=== PATIENT | female | born 1950 | race Caucasian/White ===

== ENCOUNTER → 2017-05-01 | Outpatient (CLI) | payer SELFPAY ==
[2017-05-01 10:26] LABS: ABSOLUTE BASOPHILS # (AUTO) 0.1 10^3/uL (0.0-0.2); ABSOLUTE EOSINOPHILS # (AUTO) 0.8 10^3/uL (0.0-0.6); ABSOLUTE LYMPHOCYTES (AUTO) 1.9 10^3/uL (0.5-4.7); ABSOLUTE MONOCYTES (AUTO) 0.5 10^3/uL (0.1-1.4); ABSOLUTE NEUT (AUTO) 2.8 10^3/uL (1.7-8.2); BASOPHILS % (AUTO) 1.7 % (0-2); EOSINOPHILS % (AUTO) 13.4 % (0-6); HEMATOCRIT 29.2 % (36.0-47.0); HEMOGLOBIN 9.1 g/dL (12.0-15.5); HGB HCT DIFFERENCE -1.9; LYMPHOCYTES % (AUTO) 30.9 % (13-45); MEAN CORPUSCULAR HEMOGLOBIN 21.1 pg (27.0-33.4); MEAN CORPUSCULAR HGB CONC 31.3 g/dL (32.0-36.0); MEAN CORPUSCULAR VOLUME 68 fl (80-97); MONOCYTES % (AUTO) 8.1 % (3-13); RED BLOOD COUNT 4.33 10^6/uL (3.72-5.28); RED CELL DISTRIBUTION WIDTH 18.8 % (11.5-14.0); SEGMENTED NEUTROPHILS % (AUTO) 45.9 % (42-78)
[2017-05-01 10:43] LABS: ALBUMIN 4.3 g/dL (3.5-5.0); CHLORIDE 105 mmol/L (98-107); CHOLESTEROL 153.16 mg/dL (0-200); POTASSIUM 4.9 mmol/L (3.6-5.0); SODIUM 143.2 mmol/L (137-145)
[2017-05-01 10:56] LABS: DIRECT LDL 56 mg/dL (<100)
[2017-05-01 10:57] LABS: ALANINE AMINOTRANSFERASE 30 U/L (9-52); ALKALINE PHOSPHATASE 122 U/L (38-126); ANION GAP 14 (5-19); ASPARTATE AMINO TRANSFERASE 16 U/L (14-36); BILIRUBIN,DIRECT 0.3 mg/dL (0.0-0.4); BILIRUBIN,TOTAL 0.4 mg/dL (0.2-1.3); BLOOD UREA NITROGEN 15 mg/dL (7-20); CALCIUM 9.5 mg/dL (8.4-10.2); CARBON DIOXIDE 24 mmol/L (22-30); CREATININE RESULT 0.79 mg/dL (0.52-1.25); Direct HDL 97 mg/dL (>40); GLUCOSE 151 mg/dL (75-110); TOTAL PROTEIN 6.7 g/dL (6.3-8.2); TRIGLYCERIDES 45 mg/dL (<150)
== END ==
LOC: OD 09:50
PROVIDERS: ATTEND Internal Medicine
DX: E11.9 Type 2 diabetes mellitus without complications (principal); E03.9 Hypothyroidism, unspecified; E78.5 Hyperlipidemia, unspecified; R53.82 Chronic fatigue, unspecified
CPT/HCPCS: 36415; 80053; 80061; 82043; 83036; 84443; 85025

== ENCOUNTER → 2017-05-09 | Outpatient (CLI) | payer SELFPAY ==
[2017-05-09 10:53] LABS: STAIN REACTIVITY CHECK ACCEPTABLE
[2017-05-09 11:35] LABS: FERRITIN 3.95 ng/mL (11.1-264.0)
== END ==
LOC: OD 09:27
PROVIDERS: ATTEND Internal Medicine
DX: D64.9 Anemia, unspecified (principal); E11.9 Type 2 diabetes mellitus without complications; I10 Essential (primary) hypertension
CPT/HCPCS: 36415; 82728; 83540; 83550; 85045

== ENCOUNTER → 2017-06-15 | Outpatient (CLI) | payer SELFPAY ==
[2017-06-15 14:48] LABS: ABSOLUTE BASOPHILS # (AUTO) 0.1 10^3/uL (0.0-0.2); ABSOLUTE EOSINOPHILS # (AUTO) 1.1 10^3/uL (0.0-0.6); ABSOLUTE LYMPHOCYTES (AUTO) 2.3 10^3/uL (0.5-4.7); ABSOLUTE MONOCYTES (AUTO) 0.5 10^3/uL (0.1-1.4); ABSOLUTE NEUT (AUTO) 3.4 10^3/uL (1.7-8.2); BASOPHILS % (AUTO) 0.7 % (0-2); EOSINOPHILS % (AUTO) 15.4 % (0-6); HEMATOCRIT 39.8 % (36.0-47.0); HEMOGLOBIN 12.8 g/dL (12.0-15.5); LYMPHOCYTES % (AUTO) 31.5 % (13-45); MEAN CORPUSCULAR HEMOGLOBIN 25.5 pg (27.0-33.4); MEAN CORPUSCULAR HGB CONC 32.1 g/dL (32.0-36.0); MEAN CORPUSCULAR VOLUME 80 fl (80-97); MONOCYTES % (AUTO) 6.4 % (3-13); PLATELET COUNT 295 10^3/uL (150-450); RED BLOOD COUNT 5.01 10^6/uL (3.72-5.28); RED CELL DISTRIBUTION WIDTH 31.3 % (11.5-14.0); TOTAL CELLS COUNTED % (AUTO) 100 %; WHITE BLOOD COUNT 7.3 10^3/uL (4.0-10.5)
[2017-06-15 15:06] LABS: ANISOCYTOSIS 4+; OVALOCYTES 2+; POIKILOCYTOSIS 3+
[2017-06-15 15:07] LABS: BURR CELLS SLIGHT; PLATELET COMMENT ADEQUATE; SCHISTOCYTES SLIGHT; TEAR DROP CELLS SLIGHT
== END ==
LOC: OD 14:03
PROVIDERS: ATTEND Internal Medicine
DX: D64.9 Anemia, unspecified (principal)
CPT/HCPCS: 36415; 85025

== ENCOUNTER → 2017-08-08 | Outpatient (CLI) | payer SELFPAY ==
[2017-08-08 10:17] LABS: ABSOLUTE RETICS # 0.046 10^6/uL (0.028-0.122); RETICULOCYTE COUNT (AUTO) 0.88 % (0.66-2.85)
[2017-08-08 10:35] LABS: IRON(TIBC) 104.5 ug/dL (37-170)
== END ==
LOC: OD 09:04
PROVIDERS: ATTEND Internal Medicine
DX: D64.9 Anemia, unspecified (principal)
CPT/HCPCS: 36415; 82728; 83540; 83550; 85045

== ENCOUNTER 2017-08-26 11:53 | Emergency (ER) | payer SELFPAY ==
--- NOTE | 2017-08-26 12:42 | ER Document Report ---
ED Medical Screen (RME) - General Chief Complaint: General Weakness Stated Complaint: BLOOD SUGAR PROBLEM Time Seen by Provider: 08/26/17 12:41 Notes: Patient has had dyspnea on exertion and extreme fatigue since Thursday. TRAVEL OUTSIDE OF THE [place] IN LAST 30 DAYS: No - Related Data Allergies/Adverse Reactions: codeine Allergy (Verified 08/26/17 12:06) Past Medical History - Social History Frequency of alcohol use: Rare Drug Abuse: None - Past Medical History Cardiac Medical History: Reports: Hx Hypertension Endocrine Medical History: Reports: Hx Diabetes Mellitus Type 2 Renal/ Medical History: Denies: Hx Peritoneal Dialysis Past Surgical History: Reports: Hx Hysterectomy Physical Exam - Vital signs Vitals: Temp Pulse Resp BP Pulse Ox 97.5 F 108 H 16 100/71 97 08/26/17 12:03 08/26/17 12:03 08/26/17 12:03 08/26/17 12:03 08/26/17 12:03 Course - Vital Signs Vital signs: Temp Pulse Resp BP Pulse Ox 97.5 F 108 H 16 100/71 97 08/26/17 12:03 08/26/17 12:03 08/26/17 12:03 08/26/17 12:03 08/26/17 12:03
[2017-08-26 13:19] LABS: ABSOLUTE EOSINOPHILS # (AUTO) 0.1 10^3/uL (0.0-0.6); ABSOLUTE MONOCYTES (AUTO) 0.7 10^3/uL (0.1-1.4); ABSOLUTE NEUT (AUTO) 9.9 10^3/uL (1.7-8.2); BASOPHILS % (AUTO) 0.2 % (0-2); EOSINOPHILS % (AUTO) 0.7 % (0-6); HEMATOCRIT 39.7 % (36.0-47.0); HEMOGLOBIN 13.2 g/dL (12.0-15.5); LYMPHOCYTES % (AUTO) 8.2 % (13-45); MEAN CORPUSCULAR HEMOGLOBIN 28.4 pg (27.0-33.4); MEAN CORPUSCULAR HGB CONC 33.3 g/dL (32.0-36.0); MEAN CORPUSCULAR VOLUME 85 fl (80-97); MONOCYTES % (AUTO) 6.1 % (3-13); PLATELET COUNT 228 10^3/uL (150-450); RED BLOOD COUNT 4.66 10^6/uL (3.72-5.28); RED CELL DISTRIBUTION WIDTH 14.8 % (11.5-14.0); SEGMENTED NEUTROPHILS % (AUTO) 84.8 % (42-78); TOTAL CELLS COUNTED % (AUTO) 100 %; WHITE BLOOD COUNT 11.6 10^3/uL (4.0-10.5)
--- NOTE | 2017-08-26 13:26 | ER Document Report ---
ED General - General Chief Complaint: General Weakness Stated Complaint: BLOOD SUGAR PROBLEM Time Seen by Provider: 08/26/17 12:41 Notes: The patient is a 66-year-old female, past medical history diabetes, presents with 5 days of generalized fatigue and myalgias. She is also having some dyspnea on exertion and her blood sugar is also running higher than normal. Her BG is usually 80-100 and it is now running in the 250's. "Everything hurts, including my hair." Patient says she is drinking normally, but denies chest pain, shortness of breath, fevers, dysuria, hematuria, nausea, vomiting, abdominal pain, SOB at rest, syncope, focal weakness, numbness, ataxia or back pain. TRAVEL OUTSIDE OF THE [place] IN LAST 30 DAYS: No - Related Data Allergies/Adverse Reactions: codeine Allergy (Verified 08/26/17 12:06) Past Medical History - General Information source: Patient - Social History Smoking Status: Unknown if Ever Smoked Frequency of alcohol use: Rare Drug Abuse: None Family History: Reviewed & Not Pertinent Patient has suicidal ideation: No Patient has homicidal ideation: No - Past Medical History Cardiac Medical History: Reports: Hx Hypertension Endocrine Medical History: Reports: Hx Diabetes Mellitus Type 2 Renal/ Medical History: Denies: Hx Peritoneal Dialysis Past Surgical History: Reports: Hx Hysterectomy Review of Systems - Review of Systems Notes: REVIEW OF SYSTEMS: CONSTITUTIONAL: -fevers, -chills EENT: -eye pain, -difficulty swallowing, -nasal congestion CARDIOVASCULAR: -chest pain, -syncope. RESPIRATORY: -cough, -SOB GASTROINTESTINAL: -abdominal pain, -nausea, -vomiting, -diarrhea GENITOURINARY: -dysuria, -hematuria MUSCULOSKELETAL: -back pain, -neck pain SKIN: -rash or skin lesions. HEMATOLOGIC: -easy bruising or bleeding. LYMPHATIC: -swollen, enlarged glands. NEUROLOGICAL: -altered mental status or loss of consciousness, -headache, - neurologic symptoms PSYCHIATRIC: -anxiety, -depression. ALL OTHER SYSTEMS REVIEWED AND NEGATIVE. Physical Exam - Vital signs Vitals: Temp Pulse Resp BP Pulse Ox 97.5 F 108 H 16 100/71 97 08/26/17 12:03 08/26/17 12:03 08/26/17 12:03 08/26/17 12:03 08/26/17 12:03 - Notes Notes: PHYSICAL EXAMINATION: GENERAL: Well-appearing, well-nourished and in no acute distress. HEAD: Atraumatic, normocephalic. EYES: Pupils equal round and reactive to light, extraocular movements intact, sclera anicteric, conjunctiva are normal. ENT: nares patent, oropharynx clear without exudates. Moist mucous membranes. NECK: Normal range of motion, supple without lymphadenopathy LUNGS: Breath sounds clear to auscultation bilaterally and equal. No wheezes rales or rhonchi. HEART: Regular rate and rhythm without murmurs ABDOMEN: Soft, nontender, normoactive bowel sounds. No guarding, no rebound. No masses appreciated. EXTREMITIES: Normal range of motion, no pitting or edema. No cyanosis. NEUROLOGICAL: Cranial nerves grossly intact. Normal speech, normal gait. Normal sensory and motor exams. PSYCH: Normal mood, normal affect. SKIN: Warm, Dry, normal turgor, no rashes or lesions noted. Course - Re-evaluation Re-evalutation: Patient appears well and is in no acute distress. No focal neuro signs and vital signs are normal. Initial mild tachycardia resolved while she was in the emergency room. She is hyperglycemic, but no evidence of DKA on exam or blood work. She does have ketones in her urine and she is provided with IV fluids and instructions to stay hydrated. She will follow-up with her primary care physician for further evaluation and treatment. - Vital Signs Vital signs: Temp Pulse Resp BP Pulse Ox 97.5 F 108 H 16 100/71 97 08/26/17 12:03 08/26/17 12:03 08/26/17 12:03 08/26/17 12:03 08/26/17 12:03 - Laboratory Result Diagrams: 08/26/17 13:00 08/26/17 14:14 Laboratory results interpreted by me: 08/26/17 08/26/17 08/26/17 13:00 13:37 14:14 WBC 11.6 H RDW 14.8 H Seg Neutrophils % 84.8 H Lymphocytes % 8.2 L Absolute Neutrophils 9.9 H Sodium 133.9 L Carbon Dioxide 20 L Glucose 284 H Direct Bilirubin 0.6 H Total Protein 5.4 L Albumin 3.0 L Urine Protein 30 H Urine Glucose (UA) >=500 H Urine Ketones 80 H Urine Urobilinogen 2.0 H Ur Leukocyte Esterase TRACE H Discharge - Discharge Clinical Impression: Hyperglycemia Fatigue Qualifiers: Fatigue type: unspecified Qualified Code(s): R53.83 - Other fatigue Condition: Stable Disposition: HOME, SELF-CARE Additional Instructions: NORMAL EXAM AND WORKUP: At this time, your examination and workup show no significant abnormality. No significant abnormal physical findings were noted. All laboratory, EKG, and imaging (x-ray, CT scans, ultrasound) studies that were ordered show no significant abnormality. Although your examination and all studies that were ordered showed no significant abnormal finding, there are no examinations and no studies that are 100% accurate. There is always the possibility that some abnormality could exist and not be detected with physical examination or within the limits and capabilities of laboratory and other studies. You should return or follow up as you were instructed on your visit today for further evaluation if your symptoms do not resolve. HYPERGLYCEMIA (HIGH BLOOD SUGAR): You have an abnormally high blood sugar. Not all high blood sugar requires long-term treatment. High blood sugar can be due to medications, , or the stress of illness. (These cases are "borderline diabetes.") If the doctor feels your high blood sugar might resolve with time, you may not require treatment now. It's very important that you follow through, to see if the blood sugar returns to normal levels. Uncontrolled high blood sugar leads to early heart disease, strokes, nerve damage, eye damage, and kidney damage. Call the physician if there is faintness, excess sleepiness, or very rapid breathing. DIABETES: You have an abnormally high blood sugar, suspicious for diabetes. Not all high blood sugar requires long-term treatment. High blood sugar can be due to medications, , or the stress of illness. (These cases are "borderline diabetes.") If the doctor feels your high blood sugar might get better with time, you may not require treatment now. It's very important that you follow through. Uncontrolled high blood sugar leads to early heart disease, strokes, nerve damage, eye damage, and kidney damage. All diabetics should follow a diet designed to control the blood sugar. Overweight diabetics should exercise regularly and lose weight. If this is not sufficient to control the blood sugar, pills or insulin shots are necessary. Younger people who develop diabetes almost always require insulin daily. Home testing of blood sugars or urine sugar is required. Diabetic teaching is available to help you figure insulin doses and monitor the blood sugar. Call the physician if there is faintness, excess sleepiness, or very rapid breathing. If hypoglycemia (LOW blood sugar) develops, symptoms are shakiness, weakness, sweating, and confusion. In this case, you should eat or drink something with sugar at once. FOLLOW-UP CARE: If you have been referred to a physician for follow-up care, call the physician s office for an appointment as you were instructed or within the next two days. If you experience worsening or a significant change in your symptoms, notify the physician immediately or return to the Emergency Department at any time for re-evaluation. Referrals: JACOB RUIZ MD [Primary Care Provider] - Follow up as needed
[2017-08-26 13:46] LABS: OVALOCYTES 1+; POIKILOCYTOSIS 1+; POLYCHROMASIA SLIGHT; TOXIC GRANULATION 1+
[2017-08-26 13:47] LABS: HYPOCHROMASIA SLIGHT; PLATELET CLUMPS PRESENT
[2017-08-26 14:06] LABS: APPEARANCE,URINE SLIGHTLY-CLOUDY; BILIRUBIN,URINE NEGATIVE (NEGATIVE); COLOR,URINE YELLOW; GLUCOSE, URINE >=500 mg/dL (NEGATIVE); KETONES,URINE 80 mg/dL (NEGATIVE); LEUKOCYTE ESTERASE,URINE TRACE (NEGATIVE); NITRITE,URINE NEGATIVE (NEGATIVE); PROTEIN,URINE 30 mg/dL (NEGATIVE); URINE SPECIFIC GRAVITY 1.024
[2017-08-26] MEDS ORDERED: NORMAL SALINE 1000 ML 1,000 ML IV ONE (14:29)
[2017-08-26 14:49] LABS: ALANINE AMINOTRANSFERASE 36 U/L (9-52); ALKALINE PHOSPHATASE 111 U/L (38-126); ANION GAP 15 (5-19); ASPARTATE AMINO TRANSFERASE 14 U/L (14-36); BILIRUBIN,DIRECT 0.6 mg/dL (0.0-0.4); BILIRUBIN,TOTAL 0.8 mg/dL (0.2-1.3); BLOOD UREA NITROGEN 17 mg/dL (7-20); CARBON DIOXIDE 20 mmol/L (22-30); CHLORIDE 99 mmol/L (98-107); GLUCOSE 284 mg/dL (75-110); POTASSIUM 3.8 mmol/L (3.6-5.0); SODIUM 133.9 mmol/L (137-145); TOTAL PROTEIN 5.4 g/dL (6.3-8.2)
[2017-08-26 15:19] VITALS: BP 110/61
--- NOTE | 2017-08-26 23:01 | EKG REPORT ---
SEVERITY:- ABNORMAL ECG - SINUS RHYTHM CONSIDER LEFT VENTRICULAR HYPERTROPHY : Confirmed by: Divina Connolly 26-Aug-2017 23:01:08
== END 2017-08-26 15:30 | disposition home or self-care (01) ==
LOC: ER 11:53
DX: E11.65 Type 2 diabetes mellitus with hyperglycemia (principal); R53.83 Other fatigue; M79.1 Myalgia; R06.09 Other forms of dyspnea; R00.0 Tachycardia, unspecified; Z88.5 Allergy status to narcotic agent; I10 Essential (primary) hypertension
CPT/HCPCS: 93005; 99285; 96360; 36415; 85025; 80053; 81001; 84484; 93010; J7030

== ENCOUNTER 2017-10-13 11:47 | Inpatient (IN) | payer SELFPAY ==
[~2017-10-13 11:47] MED LIST: SUCCINYLCHOLINE CHLORIDE INJ 200 MG/10 ML VIAL ONE
[2017-10-13] MEDS ORDERED: ETOMIDATE INJ/PF 20 MG/10 ML SDV IV ONE (11:56)
[2017-10-13] MEDS ORDERED: VECURONIUM BROMIDE INJ 10 MG VIAL IV ONE (12:02)
[2017-10-13] MEDS ORDERED: MIDAZOLAM 2 MG/2 ML INJ ONE (12:03)
[2017-10-13] MEDS ORDERED: FENTANYL CITRATE INJ/PF 100 MCG/2 ML AMPUL ONE (12:03)
[2017-10-13] MEDS ORDERED: NOREPINEPHRINE BITARTRATE INJ/PF 4 MG/4 ML SDV IV ONE ×2 (12:04→18:35)
--- NOTE | 2017-10-13 12:15 | ER Document Report ---
ED General - General Stated Complaint: UNRESPONSIVE Time Seen by Provider: 10/13/17 12:14 Notes: 66-year-old female to the emergency department for unresponsive. states he was taking her to the doctor because she was complaining of some abdominal pain and nausea. In route became unresponsive. Patient immediately seen out from at registration and brought immediately back. No pulses were palpable. Patient was pale and unresponsive. Patient brought immediately to trauma room 1. Patient was evaluated immediately on arrival. Chest Compressions were not begun as there was a thready pulse present. No blood pressure was obtainable. TRAVEL OUTSIDE OF THE [place] IN LAST 30 DAYS: No - HPI Onset: Just prior to arrival - Related Data Allergies/Adverse Reactions: codeine Allergy (Verified 08/26/17 12:06) Past Medical History - General Cannot obtain history due to: Intubated, Unstable vital signs, Altered mental status - Social History Smoking Status: Unknown if Ever Smoked Family History: Reviewed & Not Pertinent - Past Medical History Cardiac Medical History: Reports: Hx Hypertension Endocrine Medical History: Reports: Hx Diabetes Mellitus Type 2 Renal/ Medical History: Denies: Hx Peritoneal Dialysis Past Surgical History: Reports: Hx Hysterectomy Review of Systems - Review of Systems -: Yes ROS unobtainable due to patient's medical condition Physical Exam - Vital signs Vitals: Resp Pulse Ox 25 H 83 L 10/13/17 12:00 10/13/17 12:00 Interpretation: Hypotensive, Tachycardic, Hypoxic - Notes Notes: Ill-appearing, - HEENT Head: Normocephalic, Atraumatic Pupils: PERRL Mucous membranes: Dry - Respiratory Respiratory status: Labored, Tachypnea Chest status: Nontender Breath sounds: Normal Chest palpation: Normal - Cardiovascular Rhythm: Irregularly irregular, Tachycardia Heart sounds: Normal auscultation Murmur: No - Abdominal Inspection: Normal Distension: No distension Bowel sounds: Normal Tenderness: Nontender Organomegaly: No organomegaly - Rectal Stool: Heme positive, Black - Back Back: Normal. No: Wounds - Extremities General upper extremity: Normal inspection, Nontender, Normal color, Normal ROM. No: Normal temperature - Cold extremities General lower extremity: Normal inspection, Nontender, Normal color, Normal ROM. No: Normal temperature - Cold extremities, Wil's sign - Neurological Neuro grossly intact: Yes Cognition: Confused, Inattentive Orientation: No: AAOx4 Adal Coma Scale Verbal: Incomprehensible Course - Re-evaluation Re-evalutation: 10/13/17 13:36 This is extremely ill appearing female. Immediate attention was directed to airway breathing and circulation. Patient was intubated with 7.5 endotracheal tube with the use of glide scope. Orogastric tube was placed. Nasogastric lavage performed at bedside by surgeon. Gastroccult positive. Hemoccult positive stool. Lactic acid extremely elevated with pH of 6.7. Beginning fluids. 4 L normal saline, emergency blood given on suspicion of GI bleed. 10/13/17 14:00 General surgeon page based on concern for significant GI bleed. Dr. Lux has placed a right subclavian and left arterial monitoring line. Repeat CBC and lactate ordered. Hemoglobin and hematocrit of dropped as well as lactate is coming down. Patient has had 4 L of normal saline and 2 units of PRBCs. On pressors at this time. I have consulted with patient's primary care doctor, Dr. Hernandez. Awaiting orders at this time. Concern that patient is too unstable for transport at this time. 10/13/17 14:50 Consulted with welcome center attendant, Dr. Yeboah. Will begin bicarb drip. Initial bolus ordered as well. Patient has pH is 6.7 which is unchanged from previous after 4 L normal saline and 2 units PRBCs. Records Management Coordinator states that she is too unstable for hemodialysis at this time. If she becomes stable enough for dialysis she would likely need to be transferred to another facility where alternative dialysis measures can be performed. Patient remains unstable for transport. Surgeon has been at bedside as well with patient for the majority of the time here as well. Please see surgeon's notes for further detail on procedures. 10/13/17 15:[address] Huerta with pulmonology. Vent settings. Will try to move to CAT scan at this time. Looking for head bleed, free air. If that is unremarkable then we will move to the ICU. Dr. Connor which has been consulted as well. 10/13/17 15:[address] in the ICU at this time. Dr. Connor is comfortable with this plan. He wants repeat labs of everything. This has been ordered. Will proceed with transfer to the unit. CT scan of the head does not show any acute bleed. Waiting on formal read of the abdomen and pelvis however does appear to have some thickening of the presacral area unknown etiology. Dr. Connolly with cardiology also at bedside. Stat echo ordered. 10/13/17 16:31 Laboratory 10/13/17 10/13/17 10/13/17 11:54 11:54 11:54 WBC 36.5 H* RBC 4.27 Hgb 12.0 Hct 40.3 MCV 94 MCH 28.2 MCHC 29.8 L RDW 17.5 H Plt Count 757 H Total Counted 100 Seg Neutrophils % Not Reportable Seg Neuts % (Manual) 70 Band Neutrophils % 9 H Lymphocytes % Not Reportable Lymphocytes % (Manual) 16 Monocytes % Not Reportable Monocytes % (Manual) 3 Eosinophils % Not Reportable Eosinophils % (Manual) 2 Basophils % Not Reportable Basophils % (Manual) 0 Metamyelocytes % Absolute Neutrophils Not Reportable Abs Neuts (Manual) 28.8 H Absolute Lymphocytes Not Reportable Abs Lymphs (Manual) 5.8 H Absolute Monocytes Not Reportable Abs Monocytes (Manual) 1.1 Absolute Eosinophils Not Reportable Absolute Eos (Manual) 0.7 H Absolute Basophils Not Reportable Abs Basophils (Manual) 0.0 Nucleated RBCs Toxic Granulation Clumped Platelets PRESENT Platelet Comment INCREASED Poikilocytosis 1+ Anisocytosis 1+ Mich Cells 1+ PT 24.1 H INR 2.05 APTT 41.9 H Carbonic Acid HCO3/H2CO3 Ratio ABG pH ABG pCO2 ABG pO2 ABG HCO3 ABG Total CO2 ABG O2 Saturation ABG Base Excess FiO2 Sodium Potassium Chloride Carbon Dioxide Anion Gap BUN Creatinine Est GFR ( Amer) Est GFR (Non-Af Amer) Glucose POC Glucose 98 Lactic Acid Calcium Magnesium Total Bilirubin Direct Bilirubin Neonat Total Bilirubin Neonat Direct Bilirubin Neonat Indirect Bili AST ALT Alkaline Phosphatase Creatine Kinase CK-MB (CK-2) Troponin I Total Protein Albumin Gastric Occult Blood Stool Occult Blood Blood Type Antibody Screen Crossmatch 10/13/17 10/13/17 10/13/17 11:54 11:54 11:54 WBC RBC Hgb Hct MCV MCH MCHC RDW Plt Count Total Counted Seg Neutrophils % Seg Neuts % (Manual) Band Neutrophils % Lymphocytes % Lymphocytes % (Manual) Monocytes % Monocytes % (Manual) Eosinophils % Eosinophils % (Manual) Basophils % Basophils % (Manual) Metamyelocytes % Absolute Neutrophils Abs Neuts (Manual) Absolute Lymphocytes Abs Lymphs (Manual) Absolute Monocytes Abs Monocytes (Manual) Absolute Eosinophils Absolute Eos (Manual) Absolute Basophils Abs Basophils (Manual) Nucleated RBCs Toxic Granulation Clumped Platelets Platelet Comment Poikilocytosis Anisocytosis Mich Cells PT INR APTT Carbonic Acid HCO3/H2CO3 Ratio ABG pH ABG pCO2 ABG pO2 ABG HCO3 ABG Total CO2 ABG O2 Saturation ABG Base Excess FiO2 Sodium 144.4 Potassium 5.7 H Chloride 101 Carbon Dioxide 5 L* Anion Gap 38 H BUN 71 H Creatinine 5.76 H Est GFR ( Amer) 9 L Est GFR (Non-Af Amer) 7 L Glucose 123 H POC Glucose Lactic Acid 16.5 H Calcium 10.4 H Magnesium 2.6 H Total Bilirubin 0.3 Direct Bilirubin 0.3 Neonat Total Bilirubin Not Reportable Neonat Direct Bilirubin Not Reportable Neonat Indirect Bili Not Reportable AST 78 H ALT 33 Alkaline Phosphatase 125 Creatine Kinase 1054 H CK-MB (CK-2) 20.80 H Troponin I < 0.012 Total Protein 6.2 L Albumin 2.8 L Gastric Occult Blood Stool Occult Blood Blood Type Antibody Screen Crossmatch 10/13/17 10/13/17 10/13/17 12:14 12:14 12:35 WBC RBC Hgb Hct MCV MCH MCHC RDW Plt Count Total Counted Seg Neutrophils % Seg Neuts % (Manual) Band Neutrophils % Lymphocytes % Lymphocytes % (Manual) Monocytes % Monocytes % (Manual) Eosinophils % Eosinophils % (Manual) Basophils % Basophils % (Manual) Metamyelocytes % Absolute Neutrophils Abs Neuts (Manual) Absolute Lymphocytes Abs Lymphs (Manual) Absolute Monocytes Abs Monocytes (Manual) Absolute Eosinophils Absolute Eos (Manual) Absolute Basophils Abs Basophils (Manual) Nucleated RBCs Toxic Granulation Clumped Platelets Platelet Comment Poikilocytosis Anisocytosis Mich Cells PT INR APTT Carbonic Acid 1.02 L HCO3/H2CO3 Ratio 4:1 ABG pH 6.70 L* ABG pCO2 33.9 L ABG pO2 535.6 H ABG HCO3 4.1 L ABG Total CO2 5.2 L ABG O2 Saturation 99.6 H ABG Base Excess -31.3 FiO2 100% Sodium Potassium Chloride Carbon Dioxide Anion Gap BUN Creatinine Est GFR ( Amer) Est GFR (Non-Af Amer) Glucose POC Glucose Lactic Acid Calcium Magnesium Total Bilirubin Direct Bilirubin Neonat Total Bilirubin Neonat Direct Bilirubin Neonat Indirect Bili AST ALT Alkaline Phosphatase Creatine Kinase CK-MB (CK-2) Troponin I Total Protein Albumin Gastric Occult Blood POSITIVE Stool Occult Blood POSITIVE Blood Type Antibody Screen Crossmatch 10/13/17 10/13/17 10/13/17 13:22 13:22 13:22 WBC 28.4 H RBC 3.86 Hgb 10.9 L Hct 35.3 L MCV 91 MCH 28.1 MCHC 30.8 L RDW 16.5 H Plt Count 485 H Total Counted 100 Seg Neutrophils % Not Reportable Seg Neuts % (Manual) 73 Band Neutrophils % 3 Lymphocytes % Not Reportable Lymphocytes % (Manual) 12 L Monocytes % Not Reportable Monocytes % (Manual) 11 Eosinophils % Not Reportable Eosinophils % (Manual) 0 Basophils % Not Reportable Basophils % (Manual) 0 Metamyelocytes % 1 H Absolute Neutrophils Not Reportable Abs Neuts (Manual) 21.9 H Absolute Lymphocytes Not Reportable Abs Lymphs (Manual) 3.4 Absolute Monocytes Not Reportable Abs Monocytes (Manual) 3.1 H Absolute Eosinophils Not Reportable Absolute Eos (Manual) 0.0 Absolute Basophils Not Reportable Abs Basophils (Manual) 0.0 Nucleated RBCs 1 Toxic Granulation 1+ Clumped Platelets Platelet Comment INCREASED Poikilocytosis 2+ Anisocytosis 1+ Daisy Cells 2+ PT INR APTT Carbonic Acid HCO3/H2CO3 Ratio ABG pH ABG pCO2 ABG pO2 ABG HCO3 ABG Total CO2 ABG O2 Saturation ABG Base Excess FiO2 Sodium Potassium Chloride Carbon Dioxide Anion Gap BUN Creatinine Est GFR ( Amer) Est GFR (Non-Af Amer) Glucose POC Glucose Lactic Acid 11.7 H Calcium Magnesium Total Bilirubin Direct Bilirubin Neonat Total Bilirubin Neonat Direct Bilirubin Neonat Indirect Bili AST ALT Alkaline Phosphatase Creatine Kinase CK-MB (CK-2) Troponin I Total Protein Albumin Gastric Occult Blood Stool Occult Blood Blood Type O POSITIVE Antibody Screen NEGATIVE Crossmatch See Detail 10/13/17 10/13/17 14:02 14:37 WBC RBC Hgb Hct MCV MCH MCHC RDW Plt Count Total Counted Seg Neutrophils % Seg Neuts % (Manual) Band Neutrophils % Lymphocytes % Lymphocytes % (Manual) Monocytes % Monocytes % (Manual) Eosinophils % Eosinophils % (Manual) Basophils % Basophils % (Manual) Metamyelocytes % Absolute Neutrophils Abs Neuts (Manual) Absolute Lymphocytes Abs Lymphs (Manual) Absolute Monocytes Abs Monocytes (Manual) Absolute Eosinophils Absolute Eos (Manual) Absolute Basophils Abs Basophils (Manual) Nucleated RBCs Toxic Granulation Clumped Platelets Platelet Comment Poikilocytosis Anisocytosis Mich Cells PT INR APTT Carbonic Acid 1.18 HCO3/H2CO3 Ratio 4:1 ABG pH 6.72 L* ABG pCO2 39.1 ABG pO2 434.8 H ABG HCO3 4.9 L ABG Total CO2 6.1 L ABG O2 Saturation 99.5 H ABG Base Excess -30.7 FiO2 100% Sodium Potassium Chloride Carbon Dioxide Anion Gap BUN Creatinine Est GFR ( Amer) Est GFR (Non-Af Amer) Glucose POC Glucose 135 H Lactic Acid Calcium Magnesium Total Bilirubin Direct Bilirubin Neonat Total Bilirubin Neonat Direct Bilirubin Neonat Indirect Bili AST ALT Alkaline Phosphatase Creatine Kinase CK-MB (CK-2) Troponin I Total Protein Albumin Gastric Occult Blood Stool Occult Blood Blood Type Antibody Screen Crossmatch - Vital Signs Vital signs: Temp Pulse Resp BP Pulse Ox 22 H 108/50 L 94 10/13/17 16:17 10/13/17 16:17 10/13/17 16:17 - Laboratory Result Diagrams: 10/13/17 16:30 10/13/17 11:54 Laboratory results interpreted by me: 10/13/17 10/13/17 10/13/17 11:54 11:54 11:54 WBC 36.5 H* Hgb Hct MCHC 29.8 L RDW 17.5 H Plt Count 757 H Band Neutrophils % 9 H Lymphocytes % (Manual) Metamyelocytes % Abs Neuts (Manual) 28.8 H Abs Lymphs (Manual) 5.8 H Abs Monocytes (Manual) Absolute Eos (Manual) 0.7 H PT 24.1 H APTT 41.9 H Carbonic Acid ABG pH ABG pCO2 ABG pO2 ABG HCO3 ABG Total CO2 ABG O2 Saturation Potassium 5.7 H Carbon Dioxide 5 L* Anion Gap 38 H BUN 71 H Creatinine 5.76 H Est GFR ( Amer) 9 L Est GFR (Non-Af Amer) 7 L Glucose 123 H POC Glucose Lactic Acid Calcium 10.4 H Magnesium 2.6 H AST 78 H Creatine Kinase 1054 H CK-MB (CK-2) Total Protein 6.2 L Albumin 2.8 L Lipase Crossmatch 10/13/17 10/13/17 10/13/17 11:54 11:54 11:54 WBC Hgb Hct MCHC RDW Plt Count Band Neutrophils % Lymphocytes % (Manual) Metamyelocytes % Abs Neuts (Manual) Abs Lymphs (Manual) Abs Monocytes (Manual) Absolute Eos (Manual) PT APTT Carbonic Acid ABG pH ABG pCO2 ABG pO2 ABG HCO3 ABG Total CO2 ABG O2 Saturation Potassium Carbon Dioxide Anion Gap BUN Creatinine Est GFR ( Amer) Est GFR (Non-Af Amer) Glucose POC Glucose Lactic Acid 16.5 H Calcium Magnesium AST Creatine Kinase CK-MB (CK-2) 20.80 H Total Protein Albumin Lipase < 10.0 L Crossmatch 10/13/17 10/13/17 10/13/17 12:35 13:22 13:22 WBC 28.4 H Hgb 10.9 L Hct 35.3 L MCHC 30.8 L RDW 16.5 H Plt Count 485 H Band Neutrophils % Lymphocytes % (Manual) 12 L Metamyelocytes % 1 H Abs Neuts (Manual) 21.9 H Abs Lymphs (Manual) Abs Monocytes (Manual) 3.1 H Absolute Eos (Manual) PT APTT Carbonic Acid 1.02 L ABG pH 6.70 L* ABG pCO2 33.9 L ABG pO2 535.6 H ABG HCO3 4.1 L ABG Total CO2 5.2 L ABG O2 Saturation 99.6 H Potassium Carbon Dioxide Anion Gap BUN Creatinine Est GFR ( Amer) Est GFR (Non-Af Amer) Glucose POC Glucose Lactic Acid Calcium Magnesium AST Creatine Kinase CK-MB (CK-2) Total Protein Albumin Lipase Crossmatch See Detail 10/13/17 10/13/17 10/13/17 13:22 14:02 14:37 WBC Hgb Hct MCHC RDW Plt Count Band Neutrophils % Lymphocytes % (Manual) Metamyelocytes % Abs Neuts (Manual) Abs Lymphs (Manual) Abs Monocytes (Manual) Absolute Eos (Manual) PT APTT Carbonic Acid ABG pH 6.72 L* ABG pCO2 ABG pO2 434.8 H ABG HCO3 4.9 L ABG Total CO2 6.1 L ABG O2 Saturation 99.5 H Potassium Carbon Dioxide Anion Gap BUN Creatinine Est GFR ( Amer) Est GFR (Non-Af Amer) Glucose POC Glucose 135 H Lactic Acid 11.7 H Calcium Magnesium AST Creatine Kinase CK-MB (CK-2) Total Protein Albumin Lipase Crossmatch 10/13/17 10/13/17 16:30 16:30 WBC 27.5 H Hgb Hct MCHC 30.7 L RDW 15.9 H Plt Count 500 H Band Neutrophils % Lymphocytes % (Manual) Metamyelocytes % Abs Neuts (Manual) Abs Lymphs (Manual) Abs Monocytes (Manual) Absolute Eos (Manual) PT 22.2 H APTT 37.7 H Carbonic Acid ABG pH ABG pCO2 ABG pO2 ABG HCO3 ABG Total CO2 ABG O2 Saturation Potassium Carbon Dioxide Anion Gap BUN Creatinine Est GFR ( Amer) Est GFR (Non-Af Amer) Glucose POC Glucose Lactic Acid Calcium Magnesium AST Creatine Kinase CK-MB (CK-2) Total Protein Albumin Lipase Crossmatch - EKG Interpretation by Ks EKG shows normal: Intervals, QRS Complexes. abnormal: ST-T Waves - Rate related ST depression Rate: Tachycardia Rhythm: A.Fib Critical Care Note - Critical Care Note Total time excluding time spent on procedures (mins): 120 Discharge - Discharge Clinical Impression: Lactic acidosis Acute respiratory failure Qualifiers: Respiratory failure complication: hypoxia and hypercapnia Qualified Code(s): J96.01 - Acute respiratory failure with hypoxia Hypotension Qualifiers: Hypotension type: unspecified hypotension type Qualified Code(s): I95.9 - Hypotension, unspecified Disposition: ADMITTED INPATIENT Admitting Provider: [facility] Unit Admitted: ICU
[2017-10-13] MEDS ORDERED: PANTOPRAZOLE SODIUM 40 MG VIAL IV ONE ×2 (12:22)
[2017-10-13] MEDS ORDERED: NORMAL SALINE 250 ML IV PRN (12:24)
[2017-10-13] MEDS ORDERED: NORMAL SALINE 1000 ML 1,000 ML IV PRN (12:25)
--- NOTE | 2017-10-13 12:26 | RADIOLOGY REPORT (SQ) ---
EXAM DESCRIPTION: CHEST SINGLE VIEW COMPLETED DATE/TIME: 10/13/2017 12:14 pm REASON FOR STUDY: er t1 unresponsive COMPARISON: None. EXAM PARAMETERS: NUMBER OF VIEWS: One view. TECHNIQUE: Single frontal radiographic view of the chest acquired. RADIATION DOSE: NA LIMITATIONS: Patient is slightly rotated on the current study. FINDINGS: LUNGS AND PLEURA: There is some ill-defined increased density in the right upper lung fiel d which could represent a minimal infiltrate. Remaining lung biggs are clear. No pleural effusions are identified. MEDIASTINUM AND HILAR STRUCTURES: No masses. Contour normal. HEART AND VASCULAR STRUCTURES: Heart normal in size. Normal vasculature. BONES: No acute findings. HARDWARE: Endotracheal tube is identified with its tip at the level of the thoracic inlet. NG tube i s seen in course to the abdomen in is identified in the left upper quadrant. OTHER: No other significant finding. IMPRESSION: Ill-defined increased density in the right upper lung field which could represent a mini mal infiltrate. Remaining lung biggs are clear. Other findings as noted above TECHNICAL DOCUMENTATION: JOB ID: [id number] [email or web address]- All Rights Reserved Reading location - IP/workstation name: [email or web address]
[2017-10-13] MEDS ORDERED: FENTANYL CITRATE INJ/PF 100 MCG/2 ML AMPUL IV ONE (12:31)
[2017-10-13] MEDS ORDERED: PIPERACILLIN/TAZOBACTAM 3.375 GM VIAL IV ONE (12:32)
[2017-10-13] MEDS ORDERED: MIDAZOLAM HCL 50 MG/100 ML RTUINJ IV PRN (12:38)
[2017-10-13 12:39] LABS: ARTERIAL BLOOD BASE EXCESS -31.3 mmol/L; ARTERIAL BLOOD H2CO3 1.02 mmol/L (1.05-1.35); ARTERIAL BLOOD HCO3 4.1 mmol/L (20-26); ARTERIAL BLOOD O2 SATURATION 99.6 % (94-98); ARTERIAL BLOOD PCO2 33.9 mmHg (35-45); ARTERIAL BLOOD PO2 535.6 mmHg (80-100); ARTERIAL BLOOD TOTAL CO2 5.2 mmol/L (21-25)
[2017-10-13 12:40] LABS: ARTERIAL BLOOD FIO2 100%
[2017-10-13 12:42] LABS: HEMATOCRIT 40.3 % (36.0-47.0); MEAN CORPUSCULAR HEMOGLOBIN 28.2 pg (27.0-33.4); MEAN CORPUSCULAR HGB CONC 29.8 g/dL (32.0-36.0); MEAN CORPUSCULAR VOLUME 94 fl (80-97); PLATELET COUNT 757 10^3/uL (150-450); RED BLOOD COUNT 4.27 10^6/uL (3.72-5.28); RED CELL DISTRIBUTION WIDTH 17.5 % (11.5-14.0)
[2017-10-13 12:43] LABS: INTERNATIONAL RATION (INR) 2.05; PROTHROMBIN TIME 24.1 SEC (11.4-15.4)
[2017-10-13 12:44] LABS: PARTIAL THROMBOPLASTIN TIME 41.9 SEC (23.5-35.8)
[2017-10-13 12:57] LABS: WHITE BLOOD COUNT 36.5 10^3/uL (4.0-10.5)
[2017-10-13 13:02] LABS: ALANINE AMINOTRANSFERASE 33 U/L (9-52); ALBUMIN 2.8 g/dL (3.5-5.0); ALKALINE PHOSPHATASE 125 U/L (38-126); ASPARTATE AMINO TRANSFERASE 78 U/L (14-36); BILIRUBIN,DIRECT 0.3 mg/dL (0.0-0.4); BILIRUBIN,TOTAL 0.3 mg/dL (0.2-1.3); BLOOD UREA NITROGEN 71 mg/dL (7-20); CALCIUM 10.4 mg/dL (8.4-10.2); CHLORIDE 101 mmol/L (98-107); CREATINE KINASE 1054 U/L (30-135); GLUCOSE 123 mg/dL (75-110); POTASSIUM 5.7 mmol/L (3.6-5.0); SODIUM 144.4 mmol/L (137-145); TOTAL PROTEIN 6.2 g/dL (6.3-8.2)
[2017-10-13 13:06] LABS: ABSOLUTE LYMPHOCYTES# (MANUAL) 5.8 10^3/uL (0.5-4.7); ABSOLUTE MONOCYTES # (MANUAL) 1.1 10^3/uL (0.1-1.4); ABSOLUTE NEUTROPHILS# (MANUAL) 28.8 10^3/uL (1.7-8.2); BAND NEUTROPHILS % (MANUAL) 9 % (3-5); BASOPHILS % (MANUAL) 0 % (0-2); EOSINOPHILS % (MANUAL) 2 % (0-6); LYMPHOCYTES % (MANUAL) 16 % (13-45); MONOCYTES % (MANUAL) 3 % (3-13); SEGMENTED NEUTROPHILS % (MAN) 70 % (42-78); TOTAL CELLS COUNTED 100
[2017-10-13 13:07] LABS: ANISOCYTOSIS 1+; BURR CELLS 1+; PLATELET CLUMPS PRESENT; PLATELET COMMENT INCREASED; POIKILOCYTOSIS 1+
[2017-10-13] MEDS ORDERED: SODIUM BICARBONATE 8.4% INJ 50 MEQ/50 ML DISP.SYRIN ONE ×6 (13:11→22:13)
[2017-10-13] MEDS ORDERED: EPINEPHRINE INJ 1 MG/10 ML DISP.SYRIN ONE (13:11)
[2017-10-13] MEDS ORDERED: MAGNESIUM SULFATE PF/INJ 40 MEQ/10 ML SDV ONE (13:11)
[2017-10-13 13:14] LABS: TROPONIN I < 0.012 ng/mL
[2017-10-13] MEDS ORDERED: MIDAZOLAM HCL 50 MG/100 ML RTUINJ IV ONE (13:15)
[2017-10-13 13:16] LABS: ANION GAP 38 (5-19)
[2017-10-13 13:17] LABS: CARBON DIOXIDE 5 mmol/L (22-30)
[2017-10-13 13:47] LABS: HEMATOCRIT 35.3 % (36.0-47.0); HEMOGLOBIN 10.9 g/dL (12.0-15.5); MEAN CORPUSCULAR HEMOGLOBIN 28.1 pg (27.0-33.4); MEAN CORPUSCULAR HGB CONC 30.8 g/dL (32.0-36.0); MEAN CORPUSCULAR VOLUME 91 fl (80-97); PLATELET COUNT 485 10^3/uL (150-450); RED BLOOD COUNT 3.86 10^6/uL (3.72-5.28); RED CELL DISTRIBUTION WIDTH 16.5 % (11.5-14.0); WHITE BLOOD COUNT 28.4 10^3/uL (4.0-10.5)
--- NOTE | 2017-10-13 13:53 | RADIOLOGY REPORT (SQ) ---
EXAM DESCRIPTION: CHEST SINGLE VIEW COMPLETED DATE/TIME: 10/13/2017 1:37 pm REASON FOR STUDY: sob COMPARISON: 10/13/2017 EXAM PARAMETERS: NUMBER OF VIEWS: One view. TECHNIQUE: Single frontal radiographic view of the chest acquired. RADIATION DOSE: NA LIMITATIONS: None. FINDINGS: LUNGS AND PLEURA: The previously described ill-defined increased density in the right uppe r lung field appears less prominent on the current study. Linear density is now identified in the le ft lung base most consistent with subsegmental atelectasis. Remaining lung biggs are clear. No ple ural effusions are identified. No pneumothorax is seen. MEDIASTINUM AND HILAR STRUCTURES: No masses. Contour normal. HEART AND VASCULAR STRUCTURES: The configuration of the heart and mediastinal structures is unchanged . BONES: No acute findings. HARDWARE: Endotracheal tube is unchanged in position. NG tube is again seen in course to the abdomen . Right-sided central line is now identified with its tip at the level of the superior vena cava P OTHER: No other significant finding. IMPRESSION: Right-sided central line with its tip at the level of the superior vena cava. No pneumo thorax is seen. The previously described ill-defined increased density in the right upper lung field appears less prominent on the current study. Linear density in the left lung base most consistent w ith subsegmental atelectasis. Other findings as noted above TECHNICAL DOCUMENTATION: JOB ID: [id number] [employer]- All Rights Reserved Reading location - IP/workstation name: [email or web address]
[2017-10-13 14:01] LABS: ABSOLUTE LYMPHOCYTES# (MANUAL) 3.4 10^3/uL (0.5-4.7); ABSOLUTE MONOCYTES # (MANUAL) 3.1 10^3/uL (0.1-1.4); ABSOLUTE NEUTROPHILS# (MANUAL) 21.9 10^3/uL (1.7-8.2); BAND NEUTROPHILS % (MANUAL) 3 % (3-5); BASOPHILS % (MANUAL) 0 % (0-2); EOSINOPHILS % (MANUAL) 0 % (0-6); LYMPHOCYTES % (MANUAL) 12 % (13-45); METAMYELOCYTES % (MANUAL) 1 % (0); MONOCYTES % (MANUAL) 11 % (3-13); NUCLEATED RED BLOOD CELLS 1 /100 WBC (0); SEGMENTED NEUTROPHILS % (MAN) 73 % (42-78); TOTAL CELLS COUNTED 100
[2017-10-13 14:03] LABS: ANISOCYTOSIS 1+; BURR CELLS 2+; PLATELET COMMENT INCREASED; POIKILOCYTOSIS 2+; TOXIC GRANULATION 1+
[2017-10-13] MEDS ORDERED: CALCIUM GLUCONATE 1000 MG/10 ML INJ IV ONE ×5 (14:08→22:18)
[2017-10-13] MEDS ORDERED: AMIODARONE HCL 150 MG in DEXTROSE 5%-WATER 100 ML IV ONE (14:09)
[2017-10-13 14:20] LABS: ARTERIAL BLOOD BASE EXCESS -30.7 mmol/L; ARTERIAL BLOOD H2CO3 1.18 mmol/L (1.05-1.35); ARTERIAL BLOOD HCO3 4.9 mmol/L (20-26); ARTERIAL BLOOD O2 SATURATION 99.5 % (94-98); ARTERIAL BLOOD PCO2 39.1 mmHg (35-45); ARTERIAL BLOOD PO2 434.8 mmHg (80-100); ARTERIAL BLOOD TOTAL CO2 6.1 mmol/L (21-25)
[2017-10-13 14:21] LABS: ARTERIAL BLOOD FIO2 100%; ARTERIAL BLOOD PH 6.72 (7.35-7.45)
[2017-10-13] MEDS ORDERED: SODIUM BICARBONATE 4.2% INJ (2.5 MEQ/5 ML) VIAL INJ ONE (14:22)
[2017-10-13] MEDS ORDERED: DEXTROSE 5%-WATER 1000 ML 1,000 ML with SODIUM BICARBONATE 150 MEQ IV PRN ×4 (14:30→21:00)
[2017-10-13] MEDS ORDERED: AMIODARONE HCL INJ 150 MG/3 ML VIAL IV ONE (14:41)
--- NOTE | 2017-10-13 14:54 | EKG REPORT ---
SEVERITY:- ABNORMAL ECG - ATRIAL FIBRILLATION ST DEPRESSION, PROBABLY RATE RELATED BORDERLINE PROLONGED QT INTERVAL : Confirmed by: Hosea Roberts MD 13-Oct-2017 14:53:34
[2017-10-13] MEDS ORDERED: HYDROCORTISONE SOD SUCCINATE INJ/PF 100 MG/2 ML SDV IV ONE (15:52)
--- NOTE | 2017-10-13 15:59 | RADIOLOGY REPORT (SQ) ---
EXAM DESCRIPTION: CT HEAD WITHOUT COMPLETED DATE/TIME: 10/13/2017 3:41 pm REASON FOR STUDY: altered mental status COMPARISON: None. TECHNIQUE: Axial images acquired through the brain without intravenous contrast. Images reviewed wi th bone, brain and subdural windows. Additional sagittal and coronal reconstructions were generated. Images stored on PACS. All CT scanners at this facility use dose modulation, iterative reconstruction, and/or weight based d osing when appropriate to reduce radiation dose to as low as reasonably achievable (ALARA). [facility]: Dose Right [facility]: CareDose [facility]: Dose Right [facility]: Teradose 4D [facility]: Smart [employer] RADIATION DOSE: CT Rad equipment meets quality standard of care and radiation dose reduction techniq ues were employed. CTDIvol: 53.2 mGy. DLP: 991 mGy-cm. mGy. LIMITATIONS: None. FINDINGS: VENTRICLES: Normal size and contour. CEREBRUM: No masses. No hemorrhage. No midline shift. No evidence for acute infarction. Normal gra y/white matter differentiation. No areas of low density in the white matter. CEREBELLUM: No masses. No hemorrhage. No alteration of density. No evidence for acute infarction. EXTRAAXIAL SPACES: No fluid collections. No masses. ORBITS AND GLOBE: No intra- or extraconal masses. Normal contour of globe without masses. CALVARIUM: No fracture. PARANASAL SINUSES: No fluid or mucosal thickening. SOFT TISSUES: No mass or hematoma. OTHER: No other significant finding. IMPRESSION: NORMAL BRAIN CT WITHOUT CONTRAST. EVIDENCE OF ACUTE STROKE: NO. COMMENT: Quality ID # [id number]: Final reports with documentation of one or more dose reduction techniques (e.g., Automated exposure control, adjustment of the mA and/or kV according to patient size, use of iterative reconstruction technique) TECHNICAL DOCUMENTATION: JOB ID: [id number] [employer]- All Rights Reserved Reading location - IP/workstation name: [email or web address]
--- NOTE | 2017-10-13 16:00 | RADIOLOGY REPORT (SQ) ---
EXAM DESCRIPTION: CT CHEST WITHOUT COMPLETED DATE/TIME: 10/13/2017 3:41 pm REASON FOR STUDY: sob COMPARISON: Chest x-ray 10/13/2017 TECHNIQUE: CT scan performed of the chest without intravenous contrast. Images reviewed with lung, soft tissue and bone windows. Reconstructed coronal and sagittal MPR images reviewed. All images st ored on PACS. All CT scanners at this facility use dose modulation, iterative reconstruction, and/or weight based d osing when appropriate to reduce radiation dose to as low as reasonably achievable (ALARA). [facility]: Dose Right [facility]: CareDose [facility]: Dose Right [facility]: Teradose 4D [facility]: Smart [employer] RADIATION DOSE: CT Rad equipment meets quality standard of care and radiation dose reduction techniq ues were employed. CTDIvol: 18.2 mGy. DLP: 1384 mGy-cm. mGy. LIMITATIONS: No technical limitations. FINDINGS: LUNGS AND PLEURA: Dependent atelectasis. Increased opacification in the bases, left more than right. Air bronchograms are seen. Minimal right pleural effusion. HILAR AND MEDIASTINAL STRUCTURES: No identified masses or abnormal nodes. No obvious aneurysm. HEART AND VASCULAR STRUCTURES: No aneurysm. No pericardial effusion. UPPER ABDOMEN: See separate report of the CT of the abdomen. THYROID AND OTHER SOFT TISSUES: No masses. No adenopathy. BONES: No significant finding. HARDWARE: Endotracheal tube has its tip 3 cm above the erik. An NG tube extends to the stomach. A right subclavian line has its tip in the superior vena cava. OTHER: No other significant findings. IMPRESSION: Subsegmental atelectasis. Cannot exclude a limited infiltrate in either base. Small ri ght pleural effusion. TECHNICAL DOCUMENTATION: JOB ID: [id number] Quality ID # [id number]: Final reports with documentation of one or more dose reduction techniques (e.g., Au tomated exposure control, adjustment of the mA and/or kV according to patient size, use of iterative reconstruction technique) 2010 [employer]- All Rights Reserved Reading location - IP/workstation name: [email or web address]
--- NOTE | 2017-10-13 16:11 | RADIOLOGY REPORT (SQ) ---
EXAM DESCRIPTION: CT ABD/PELVIS NO ORAL OR IV COMPLETED DATE/TIME: 10/13/2017 3:41 pm REASON FOR STUDY: unresponsive, altered, possible GI bleed COMPARISON: None. TECHNIQUE: CT scan of the abdomen and pelvis performed without intravenous or oral contrast. Images reviewed with lung, soft tissue, and bone windows. Reconstructed coronal and sagittal MPR images revi ewed. All images stored on PACS. All CT scanners at this facility use dose modulation, iterative reconstruction, and/or weight based d osing when appropriate to reduce radiation dose to as low as reasonably achievable (ALARA). [facility]: Dose Right [facility]: CareDose [facility]: Dose Right [facility]: Teradose 4D [facility]: [employer] RADIATION DOSE: mGy. LIMITATIONS: None. FINDINGS: LOWER CHEST: See separate report of the CT of the chest. NON-CONTRASTED LIVER, SPLEEN, ADRENALS: Evaluation limited by lack of IV contrast. No identified sign ificant masses. PANCREAS: There appears to be stranding in the peripancreatic fat. GALLBLADDER: No identified stones by CT criteria. No inflammatory changes to suggest cholecystitis. RIGHT KIDNEY AND URETER: No suspicious masses. Assessment limited by lack of IV contrast. No signif icant calcifications. No hydronephrosis or hydroureter. LEFT KIDNEY AND URETER: No suspicious masses. Assessment limited by lack of IV contrast. No signifi cant calcifications. No hydronephrosis or hydroureter. AORTA AND RETROPERITONEUM: No aneurysm. No retroperitoneal masses or adenopathy. BOWEL AND PERITONEAL CAVITY: Cannot exclude edema in the duodenum. APPENDIX: Not identified. PELVIS, BLADDER, AND ABDOMINAL WALL:There is a small amount of free fluid in the pelvis. A Choi cat heter is present in the urinary bladder. BONES: No significant findings. OTHER: No other significant finding. IMPRESSION: 1. Possible pancreatitis. Consider follow-up CT with intravenous contrast. If there i s concern for GI bleed, no oral contrast should be given. If not, oral contrast would be helpful. 2. Questionable duodenal edema. See recommendations above. 3. There is small amount of free fluid in the pelvis. COMMENT: Quality ID # [id number]: Final reports with documentation of one or more dose reduction techniques (e.g., Automated exposure control, adjustment of the mA and/or kV according to patient size, use of iterative reconstruction technique) TECHNICAL DOCUMENTATION: JOB ID: [id number] [employer]- All Rights Reserved Reading location - IP/workstation name: [email or web address]
[2017-10-13 16:39] LABS: HEMATOCRIT 42.1 % (36.0-47.0); HEMOGLOBIN 12.9 g/dL (12.0-15.5); MEAN CORPUSCULAR HEMOGLOBIN 28.2 pg (27.0-33.4); MEAN CORPUSCULAR HGB CONC 30.7 g/dL (32.0-36.0); MEAN CORPUSCULAR VOLUME 92 fl (80-97); PLATELET COUNT 500 10^3/uL (150-450); RED BLOOD COUNT 4.58 10^6/uL (3.72-5.28); RED CELL DISTRIBUTION WIDTH 15.9 % (11.5-14.0); WHITE BLOOD COUNT 27.5 10^3/uL (4.0-10.5)
[2017-10-13 16:43] LABS: INTERNATIONAL RATION (INR) 1.85; PROTHROMBIN TIME 22.2 SEC (11.4-15.4)
[2017-10-13 16:44] LABS: PARTIAL THROMBOPLASTIN TIME 37.7 SEC (23.5-35.8)
[2017-10-13 16:59] LABS: ALANINE AMINOTRANSFERASE 79 U/L (9-52); ALBUMIN 1.9 g/dL (3.5-5.0); ALKALINE PHOSPHATASE 184 U/L (38-126); ASPARTATE AMINO TRANSFERASE 236 U/L (14-36); BILIRUBIN,DIRECT 0.5 mg/dL (0.0-0.4); BILIRUBIN,TOTAL 0.5 mg/dL (0.2-1.3); BLOOD UREA NITROGEN 60 mg/dL (7-20); CALCIUM 7.3 mg/dL (8.4-10.2); CHLORIDE 111 mmol/L (98-107); GLUCOSE 151 mg/dL (75-110); POTASSIUM 5.9 mmol/L (3.6-5.0)
[2017-10-13] MEDS ORDERED: DEXTROSE 50%-WATER 25 GM/50 ML DISP.SYRIN IV PRN ×4 (17:09→17:18)
[2017-10-13] MEDS ORDERED: DEXTROSE 40% GEL 15 GM TUBE PO PRN ×4 (17:09→17:18)
[2017-10-13] MEDS ORDERED: GLUCAGON,HUMAN RECOMB 1 MG INJ SUBCUT PRN (17:09)
[2017-10-13 17:10] LABS: ABSOLUTE LYMPHOCYTES# (MANUAL) 3.3 10^3/uL (0.5-4.7); ABSOLUTE MONOCYTES # (MANUAL) 0.3 10^3/uL (0.1-1.4); ABSOLUTE NEUTROPHILS# (MANUAL) 23.3 10^3/uL (1.7-8.2); BASOPHILS % (MANUAL) 0 % (0-2); EOSINOPHILS % (MANUAL) 2 % (0-6); LYMPHOCYTES % (MANUAL) 10 % (13-45); MONOCYTES % (MANUAL) 1 % (3-13); NUCLEATED RED BLOOD CELLS 1 /100 WBC (0); SEGMENTED NEUTROPHILS % (MAN) 64 % (42-78); TOTAL CELLS COUNTED 100; TROPONIN I 0.024 ng/mL
[2017-10-13 17:11] LABS: BAND NEUTROPHILS % (MANUAL) 14 % (3-5); METAMYELOCYTES % (MANUAL) 4 % (0); MYELOCYTES % (MANUAL) 2 % (0); PROMYELOCYTES % (MANUAL) 1 % (0)
[2017-10-13] MEDS ORDERED: PHARMACY COMMUNICATION ORDER MC NR (17:15)
[2017-10-13 17:17] LABS: TOXIC GRANULATION 3+
[2017-10-13 17:18] LABS: ACANTHOCYTES SLIGHT; ANISOCYTOSIS SLIGHT; BURR CELLS 2+; HYPOCHROMASIA SLIGHT; OVALOCYTES 1+; PLATELET CLUMPS PRESENT; PLATELET COMMENT INCREASED; PLATELET GIANT PRESENT; PLATELET LARGE PRESENT; POIKILOCYTOSIS 3+; POLYCHROMASIA SLIGHT; SCHISTOCYTES 1+; TOXIC VACUOLATION PRESENT
[2017-10-13] MEDS ORDERED: GLUCAGON,HUMAN RECOMB 1 MG INJ IM PRN (17:18)
[2017-10-13] MEDS ORDERED: INSULIN LISPRO 100 UNIT/ML 3 ML VIAL SUBCUT PRN (17:18)
--- NOTE | 2017-10-13 17:29 | PDOC H&P ---
History of Present Illness Admission Date/PCP: 10/13/17 16:43 JACOB RUIZ, Patient complains of: Unresponsive History of Present Illness: MASON ANTONY is a 66 year old female Past Medical History Cardiac Medical History: Reports: Hypertension Endocrine Medical History: Reports: Diabetes Mellitus Type 2 Past Surgical History Past Surgical History: Reports: Hysterectomy Social History Smoking Status: Unknown if Ever Smoked Family History Family History: Reviewed & Not Pertinent Parental Family History Reviewed: Yes Children Family History Reviewed: Yes Sibling(s) Family History Reviewed.: Yes Medication/Allergy Home Medications: Ergocalciferol (Vitamin D2) [Drisdol 50,000 unit (1.25MG) Capsule] 50,000 unit PO REGALADO 10/13/17 Gabapentin [Neurontin 100 mg Capsule] 100 mg PO Q8 10/13/17 Levothyroxine Sodium [Synthroid] 150 mcg PO DAILY 10/13/17 Lisinopril [Zestril] 5 mg PO DAILY 10/13/17 Metformin HCl [Glucophage] 1,000 mg PO BID 10/13/17 Methylprednisolone [Medrol Dosepack (4 mg/Tab) 21 Tab/Dosepak] 1 tab PO ASDIR Allergies/Adverse Reactions: codeine Allergy (Verified 08/26/17 12:06) Physical Exam Vital Signs: Temp Pulse Resp BP Pulse Ox 22 H 108/50 L 93 10/13/17 17:00 10/13/17 16:17 10/13/17 17:00 Results Impressions: Chest X-Ray 10/13/17 13:26 IMPRESSION: Right-sided central line with its tip at the level of the superior vena cava. No pneumothorax is seen. The previously described ill-defined increased density in the right upper lung field appears less prominent on the current study. Linear density in the left lung base most consistent with subsegmental atelectasis. Other findings as noted above Chest CT 10/13/17 14:03 IMPRESSION: Subsegmental atelectasis. Cannot exclude a limited infiltrate in either base. Small right pleural effusion. Head CT 10/13/17 14:03 IMPRESSION: NORMAL BRAIN CT WITHOUT CONTRAST. EVIDENCE OF ACUTE STROKE: NO. Abdomen/Pelvis CT 10/13/17 14:04 IMPRESSION: 1. Possible pancreatitis. Consider follow-up CT with intravenous contrast. If there is concern for GI bleed, no oral contrast should be given. If not, oral contrast would be helpful. 2. Questionable duodenal edema. See recommendations above. 3. There is small amount of free fluid in the pelvis. Assessment & Plan - Diagnosis (1) Acute renal failure Is this a current diagnosis for this admission?: Yes Plan: We will continue with IV hydration. Nephrology consultation (2) Metabolic acidosis Is this a current diagnosis for this admission?: Yes Plan: We will continue with bicarb drip and hydration (3) Respiratory alkalosis Is this a current diagnosis for this admission?: Yes Plan: Pulmonary consultation and adjust vent settings (4) Shock Is this a current diagnosis for this admission?: Yes Plan: IV fluids and pressors (5) Acute respiratory failure Qualifiers: Respiratory failure complication: hypoxia and hypercapnia Qualified Code(s) : J96.01 - Acute respiratory failure with hypoxia; J96.02 - Acute respiratory failure with hypercapnia; J96.02 - Acute respiratory failure with hypercapnia; J96.02 - Acute respiratory failure with hypercapnia Is this a current diagnosis for this admission?: Yes Plan: Continue vent management (6) Hypotension Qualifiers: Hypotension type: unspecified hypotension type Qualified Code(s): I95.9 - Hypotension, unspecified Is this a current diagnosis for this admission?: Yes Plan: IV fluids and pressors (7) Lactic acidosis Is this a current diagnosis for this admission?: Yes Plan: Recheck labs in the morning (8) Leukocytosis Is this a current diagnosis for this admission?: Yes Plan: An IV antibiotics (9) Sepsis Is this a current diagnosis for this admission?: Yes Plan: IV antibiotics and steroids
[2017-10-13 17:41] LABS: CREATINE KINASE 2462 U/L (30-135)
[2017-10-13 17:43] LABS: CARBON DIOXIDE < 5 mmol/L (22-30)
--- NOTE | 2017-10-13 17:56 | RADIOLOGY REPORT (SQ) ---
EXAM DESCRIPTION: KUB/ABDOMEN (SINGLE VIEW) COMPLETED DATE/TIME: 10/13/2017 5:47 pm REASON FOR STUDY: Check Placement of NG Tube COMPARISON: None. TECHNIQUE: Limited single frontal radiograph of the abdomen obtained to evaluate nasogastric tube pl acement. LIMITATIONS: None. FINDINGS: Nasogastric tube tip is within the upper stomach and side port at the level of the gastroe sophageal junction. The stomach is gas distended. Nonobstructed bowel-gas pattern. Soft tissue org an outlines grossly normal. IMPRESSION: SLIGHTLY HIGH POSITION OF NASOGASTRIC TUBE. RECOMMEND ADVANCEMENT. TECHNICAL DOCUMENTATION: JOB ID: [id number] [employer]- All Rights Reserved Reading location - IP/workstation name: [email or web address]
[2017-10-13 18:23] LABS: APPEARANCE,URINE CLOUDY; BILIRUBIN,URINE NEGATIVE (NEGATIVE); COLOR,URINE YELLOW; GLUCOSE, URINE 150 mg/dL (NEGATIVE); KETONES,URINE NEGATIVE (NEGATIVE); LEUKOCYTE ESTERASE,URINE TRACE (NEGATIVE); NITRITE,URINE NEGATIVE (NEGATIVE); PROTEIN,URINE 100 mg/dL (NEGATIVE); URINE SPECIFIC GRAVITY 1.014; UROBILINOGEN,URINE NEGATIVE mg/dL (<2.0)
[2017-10-13] MEDS ORDERED: DEXTROSE 40% GEL 15 GM TUBE NG PRN ×4 (18:30→19:00)
--- NOTE | 2017-10-13 18:37 | XCELERA REPORT ---
[address] [address] Transthoracic Echocardiogram Report Name: MASON ANTONY Age: 66 yrs Gender: Female : 1950 Patient Status: Emergency Patient Location: [place] [address]^A Study Date: 10/13/2017 04:02 PM Procedure: A complete two-dimensional transthoracic echocardiogram was performed (2D, M-mode, spectral and color flow Doppler). The study was technically difficult with many images being suboptimal in quality. Reason For Study: hypotension Ordering Physician: JOSE GOLDSMITH Performed By: Maddie Ramirez Interpretation Summary The left ventricular ejection fraction is normal. Doppler measurements suggest impaired left ventricular relaxation, which is associated with grade I/IV or mild diastolic dysfunction There is borderline concentric left ventricular hypertrophy. The left ventricle is grossly normal size. Wall motion cannot be accurately commented on, but no definite regional wall motion abnormalities noted. The right ventricle is mildly dilated. There is normal right ventricular wall thickness. There is a trace amount of mitral regurgitation There is no mitral valve stenosis. There is no aortic valve stenosis No aortic regurgitation is present. There is a mild amount of tricuspid regurgitation There is moderate pulmonary hypertension by echo Right ventricular systolic pressure is estimated to be elevated at 50- 60mmHg. The aortic root is not well visualized but is probably normal size. The inferior vena cava appeared normal and decreased > 50% with respiration (RAP 5-10 mmHg) Minimal pericardial effusion. MMode/2D Measurements & Calculations RVDd: 3.1 cm LVIDd: 4.8 cm FS: 35.5 % Ao root diam: 2.4 cm IVSd: 0.99 cm LVIDs: 3.1 cm EDV(Teich): 108.1 ml Ao root area: 4.4 cm2 LVPWd: 0.97 cm ESV(Teich): 38.0 ml EF(Teich): 64.8 % Doppler Measurements & Calculations MV E max andrew: MV dec slope: Ao V2 max: LV V1 max P.5 cm/sec 455.4 cm/sec2 139.7 cm/sec 6.2 mmHg MV A max andrew: MV dec time: Ao max PG: LV V1 max: 105.6 cm/sec 0.15 sec 7.8 mmHg 124.8 cm/sec MV E/A: 0.66 PA V2 max: TR max andrew: 92.9 cm/sec 331.9 cm/sec PA max P.5 mmHgTR max P.2 mmHg Left Ventricle The left ventricle is grossly normal size. There is borderline concentric left ventricular hypertrophy. The left ventricular ejection fraction is normal. Doppler measurements suggest impaired left ventricular relaxation, which is associated with grade I/IV or mild diastolic dysfunction. Wall motion cannot be accurately commented on, but no definite regional wall motion abnormalities noted. Right Ventricle The right ventricle is mildly dilated. There is normal right ventricular wall thickness. The right ventricular systolic function is normal. Atria Borderline right atrial enlargement. The left atrial size is normal. Interarterial septum not well visualized and not well dopplered. Cannot comment on ASD/PFO presence. Mitral Valve The mitral valve is grossly normal. There is no mitral valve stenosis. There is a trace amount of mitral regurgitation. Aortic Valve The aortic valve is grossly normal. There is no aortic valve stenosis. No aortic regurgitation is present. Tricuspid Valve The tricuspid valve is not well visualized, but is grossly normal. There is no tricuspid stenosis. There is a mild amount of tricuspid regurgitation. There is moderate pulmonary hypertension by echo. Right ventricular systolic pressure is estimated to be elevated at 50-60mmHg. Pulmonic Valve The pulmonic valve is not well visualized. Great Vessels The aortic root is not well visualized but is probably normal size. The inferior vena cava appeared normal and decreased > 50% with respiration (RAP 5-10 mmHg). Effusions Minimal pericardial effusion. : JOSE GOLDSMITH > Divina Connolly
--- NOTE | 2017-10-13 18:47 | Operative Report ---
Nonrecallable Operative Report DATE OF SURGERY: 10/13/17 - 1300 PREOPERATIVE DIAGNOSIS: Hypotension and critical illness POSTOPERATIVE DIAGNOSIS: Hypotension and critical illness OPERATION: Right subclavian central line placement SURGEON: QUINCY SAMUELS ANESTHESIA: Other - None COMPLICATIONS: Persistent hypotension ESTIMATED BLOOD LOSS: Minimal PROCEDURE: Drains/implants: Right subclavian central line at 15 cm. Indication for the procedure: This is a 66-year-old female brought into the emergency department after collapsing in the parking lot. Patient has severe hypotension and is needing emergency vasopressors. The patient's is at the bedside. Consent was verbally obtained from him for the procedure. Procedure in detail: After consent was obtained from the patient's , she was laid in the Trendelenburg position in the emergency department. The area of the neck and chest were prepped and draped in a normal sterile fashion. Using the landmark method, the supplied access needle was inserted beneath the clavicle toward the sternal notch. The needle was slowly advanced beneath the clavicle and a flash of dark, venous, nonpulsatile blood was returned in the syringe. The wire was then inserted into the needle. The wire was found passed easily. Next, the catheter was slid over the wire using a modified Seldinger technique. The catheter was sutured to the skin. The ports were aspirated and flushed 3 without difficulty. The ports returned turned dark, venous, nonpulsatile blood. The column of blood within the catheter fell when elevated, confirming placement into the venous system. A dressing was fashioned , and the procedure was concluded. All sponge, instrument, and needle counts were correct 2. Chest x-ray confirmed the tip of the catheter to reside within the superior vena cava. Condition: Critical.
[2017-10-13] MEDS ORDERED: PHENYLEPHRINE HCL INJ/PF 10 MG/1 ML SDV ONE (18:50)
--- NOTE | 2017-10-13 18:52 | Operative Report ---
Nonrecallable Operative Report DATE OF SURGERY: 10/13/17 3557 PREOPERATIVE DIAGNOSIS: Persistent hypotension, non-reliable cuff pressures. POSTOPERATIVE DIAGNOSIS: Same as above OPERATION: Ultrasound-guided left radial A-line placement SURGEON: QUINCY SAMUELS ANESTHESIA: Other - None TISSUE REMOVED OR ALTERED: None COMPLICATIONS: Persistent hypotension ESTIMATED BLOOD LOSS: Minimal PROCEDURE: Drains/implants: A 20-gauge left radial A-line catheter. Indication for the procedure: This is a 66-year-old female with persistent hypotension. She is maintained on vasopressors. The blood pressure cuff continues to read variable blood pressures. The patient is requiring titration of her vasopressors, and reliable blood pressures are essential for her care. The patient's is present to give consent. Procedure in detail: After informed consent was obtained from the patient's , the ultrasound was used to identify the left radial artery. It was pulsatile with normal flow. Under direct ultrasonic guidance the a-line catheter was inserted into the radial artery. A flash of pulsatile arterial blood was noted within the needle. A wire was inserted easily into the artery. The catheter was slid over the wire using a modified Seldinger technique. The catheter was attached to the arterial line transducer, and an arterial waveform was confirmed. The catheter was secured to the patient, and the procedure was concluded. Condition: Critical
--- NOTE | 2017-10-13 19:06 | PDOC PROGRESS REPORT ---
Subjective Reason For Visit: ACUTE RESPIRATORY FAILURE,LACTIC ACIDOSIS, Physical Exam Vital Signs: Temp Pulse Resp BP Pulse Ox 22 H 108/50 L 93 10/13/17 17:00 10/13/17 16:17 10/13/17 17:00 Results Impressions: Chest X-Ray 10/13/17 13:26 IMPRESSION: Right-sided central line with its tip at the level of the superior vena cava. No pneumothorax is seen. The previously described ill-defined increased density in the right upper lung field appears less prominent on the current study. Linear density in the left lung base most consistent with subsegmental atelectasis. Other findings as noted above Chest CT 10/13/17 14:03 IMPRESSION: Subsegmental atelectasis. Cannot exclude a limited infiltrate in either base. Small right pleural effusion. Head CT 10/13/17 14:03 IMPRESSION: NORMAL BRAIN CT WITHOUT CONTRAST. EVIDENCE OF ACUTE STROKE: NO. Abdomen/Pelvis CT 10/13/17 14:04 IMPRESSION: 1. Possible pancreatitis. Consider follow-up CT with intravenous contrast. If there is concern for GI bleed, no oral contrast should be given. If not, oral contrast would be helpful. 2. Questionable duodenal edema. See recommendations above. 3. There is small amount of free fluid in the pelvis. KUB X-Ray 10/13/17 17:13 IMPRESSION: SLIGHTLY HIGH POSITION OF NASOGASTRIC TUBE. RECOMMEND ADVANCEMENT. Assessment & Plan - Plan Summary Plan Summary: I was called to see this 66-year-old female due to a possible upper GI bleed. I was contacted at approximately 12:45 PM and immediately made my way to the emergency department. Upon my arrival she was hypotensive and in extremis. Fluid boluses were initiated, and uncross matched blood was already hung. NG tube had been placed prior to my arrival. I lavaged the NG tube with a large volume of cold saline (greater than 1 L). No significant red blood or coffee grounds were returned in the NG tube. Significant upper GI bleeding was thought to be less likely. Patient remained persistently hypotensive and was on Levophed. Central venous access would be necessary to continue her resuscitation. Right subclavian central line was then placed by me. Please see procedure note for further details. Patient's pH returned as 6.7. 2 Amps of sodium bicarb were ordered by me. Patient appeared to be in atrial fibrillation with a rate of approximately 130/140. Amiodarone was started for this. Fluid boluses were continued. Patient's blood pressure continued to remain labile. The blood pressure cuff was proving to be unreliable. Left radial A-line was then placed by me. Please see procedure dictation for full details. There was some concern for the possibility of an intra-abdominal process. Patient's abdominal exam was essentially benign. Abdomen was soft, nondistended , there was no involuntary guarding or abdominal wall hernias. Abdominal ultrasound was performed at the bedside by me. I could not identify any obvious free fluid within the abdomen. Patient was then taken to CT scan for imaging. No obvious intrathoracic or intra-abdominal process could be identified to explain her rapid deterioration. Her hemoglobin was 10-12 (not consistent with active hemorrhage). The patient's medical doctor was contacted , as well as pulmonology. They will be assuming the patient's care. This was discussed with the emergency room physician. I rendered care to the patient continuously for approximately 3 hours. Critical care time, 160 minutes.
[2017-10-13 19:07] LABS: ARTERIAL BLOOD H2CO3 0.92 mmol/L (1.05-1.35); ARTERIAL BLOOD HCO3 5.6 mmol/L (20-26); ARTERIAL BLOOD O2 SATURATION 97.8 % (94-98); ARTERIAL BLOOD PCO2 30.4 mmHg (35-45); ARTERIAL BLOOD TOTAL CO2 6.6 mmol/L (21-25)
[2017-10-13 19:26] LABS: ARTERIAL BLOOD FIO2 100%
[2017-10-13 19:27] LABS: CREATINE KINASE MB 32.7 ng/mL (<4.55); TROPONIN I 0.039 ng/mL
[2017-10-13 19:27] LABS: ARTERIAL BLOOD PH 6.89 (7.35-7.45)
[2017-10-13] MEDS ORDERED: VANCOMYCIN HCL 0 MG in DEXTROSE 5%-WATER 250 ML IV NR (19:45)
[2017-10-13] MEDS ORDERED: CALCIUM GLUCONATE 2,222 MG in DEXTROSE 5%-WATER 100 ML IV ONE (20:00)
[2017-10-13] MEDS ORDERED: DEXTROSE 5%-WATER 250 ML with PHENYLEPHRINE HCL 40 MG IV PRN ×2 (20:12)
[2017-10-13] MEDS ORDERED: DEXTROSE 5%-WATER 250 ML with VASOPRESSIN 100 UNIT IV PRN ×2 (20:30)
[2017-10-13] MEDS ORDERED: VANCOMYCIN HCL 1,500 MG in DEXTROSE 5%-WATER 250 ML IV ONE (20:30)
--- NOTE | 2017-10-13 20:38 | PDOC CONSULTATION ---
Consultation Consult Date: 10/13/17 Attending physician:: JACOB RUIZ Consult reason:: I was asked to see this patient because of acute kidney injury , severe metabolic acidosis and hyperkalemia. History of Present Illness Admission Date/PCP: 10/13/17 16:43 JACOB RUIZ, History of Present Illness: AMSON IYER is a 66 year old female with history of hypertension diabetes mellitus type 2 from records who was brought in by the in the emergency room today because of worsening generalized weakness. According to the patient's the patient has been feeling generally weak for the past month. About 3 weeks ago patient presented herself to the emergency room but nothing was found wrong so she was discharged home. Today the patient was noted to be profoundly weak so the decided to bring the patient to the emergency room per patient passed out and became unresponsive. In the emergency room patient was found to be very hypotensive with blood pressure as low as 43/30. Initial evaluation showed that the patient is very acidotic with a pH of 6.7 and bicarbonate of 5. She also has elevated BUN of 71 creatinine of 5.76, previously normal kidney function of 17.78 respectively. Her potassium was 5.7 initially. Her lactic acid was also elevated at 16.5 along with WBC count of 36.5 pointing to possible sepsis leading to septic shock. No focus of infection can be identified. Her chest x-ray was clear without any infiltrates. There was a thought that that she could have a GI bleed due to a positive stool for occult blood so surgery was called and they came and evaluate the patient. No evidence of GI bleeding was found. Patient was also in acute respiratory failure so she was subsequently intubated. A CT scan of the abdomen showed a possible pancreatitis but her lipase is low. Patient is currently in ICU with 2 vasopressors and still with severe tachycardia and blood pressure. I recommended the patient be started on the bicarb drip in the emergency room. Patient was given a total of 6 L of IV fluids and was given 2 units of packed RBC in the emergency room. Currently the patient is very critically ill. Past Medical History Cardiac Medical History: Reports: Hypertension-primary Endocrine Medical History: Reports: Diabetes Mellitus Type 2 Past Surgical History Past Surgical History: Reports: Hysterectomy Social History Information Source: [facility] Records Lives with: Spouse/Significant other Smoking Status: Unknown if Ever Smoked Family History Family History: Reviewed & Not Pertinent Parental Family History Reviewed: Yes Children Family History Reviewed: Unknown Sibling(s) Family History Reviewed.: Unknown Medication/Allergy Home Medications: Ergocalciferol (Vitamin D2) [Drisdol 50,000 unit (1.25MG) Capsule] 50,000 unit PO REGALADO 10/13/17 Gabapentin [Neurontin 100 mg Capsule] 100 mg PO Q8 10/13/17 Levothyroxine Sodium [Synthroid] 150 mcg PO DAILY 10/13/17 Lisinopril [Zestril] 5 mg PO DAILY 10/13/17 Metformin HCl [Glucophage] 1,000 mg PO BID 10/13/17 Methylprednisolone [Medrol Dosepack (4 mg/Tab) 21 Tab/Dosepak] 1 tab PO ASDIR Allergies/Adverse Reactions: codeine Allergy (Verified 08/26/17 12:06) Review of Systems ROS unobtainable: Due to endotracheal tube Physical Exam Vital Signs: Temp Pulse Resp BP Pulse Ox 98.1 F 129 H 23 H 93/47 L 100 10/13/17 19:35 10/13/17 19:27 10/13/17 19:27 10/13/17 19:27 10/13/17 19:27 Intake & Output 10/12/17 10/13/17 10/14/17 06:59 06:59 06:59 Output Total 200 Balance -200 Weight 93.1 kg Exam: General appearance: Patient is intubated and currently unresponsive without any sedation. Head exam: PRESENT: atraumatic, normocephalic Eye exam: PRESENT: Eyes are closed Mouth exam: PRESENT: ET tube in place Neck exam: PRESENT: Cannot be assessed at this time. ABSENT: carotid bruit, JVD , lymphadenopathy, thyromegaly Respiratory exam: PRESENT: clear to auscultation bilaterally. ABSENT: rales, rhonchi, stridor, wheezes Cardiovascular exam: PRESENT: RRR, +S1, +S2. Tachycardic ABSENT: systolic murmur Pulses: PRESENT: normal radial pulses, normal dorsalis pedis pulses GI/Abdominal exam: PRESENT: Decreased bowel sounds, soft. ABSENT: guarding, mass, tenderness Rectal exam: deferred Extremities exam: PRESENT: full ROM. ABSENT: calf tenderness, pedal edema Musculoskeletal: PRESENT: full ROM. ABSENT: deformity Neurological exam: PRESENT: Unresponsive Psychiatric exam: PRESENT: Cannot be assessed due to mental state Skin exam: PRESENT: intact, dry, warm. ABSENT: rash Results Laboratory Results: 10/13/17 18:48 Carbonic Acid 0.92 L HCO3/H2CO3 Ratio 6:1 ABG pH 6.89 L* ABG pCO2 30.4 L ABG pO2 171.0 H ABG HCO3 5.6 L ABG O2 Saturation 97.8 ABG Base Excess -27.0 FiO2 100% 10/13/17 18:40 CK-MB (CK-2) 32.70 H Troponin I 0.039 Impressions: Chest X-Ray 10/13/17 13:26 IMPRESSION: Right-sided central line with its tip at the level of the superior vena cava. No pneumothorax is seen. The previously described ill-defined increased density in the right upper lung field appears less prominent on the current study. Linear density in the left lung base most consistent with subsegmental atelectasis. Other findings as noted above Chest CT 10/13/17 14:03 IMPRESSION: Subsegmental atelectasis. Cannot exclude a limited infiltrate in either base. Small right pleural effusion. Head CT 10/13/17 14:03 IMPRESSION: NORMAL BRAIN CT WITHOUT CONTRAST. EVIDENCE OF ACUTE STROKE: NO. Abdomen/Pelvis CT 10/13/17 14:04 IMPRESSION: 1. Possible pancreatitis. Consider follow-up CT with intravenous contrast. If there is concern for GI bleed, no oral contrast should be given. If not, oral contrast would be helpful. 2. Questionable duodenal edema. See recommendations above. 3. There is small amount of free fluid in the pelvis. KUB X-Ray 10/13/17 17:13 IMPRESSION: SLIGHTLY HIGH POSITION OF NASOGASTRIC TUBE. RECOMMEND ADVANCEMENT. Assessment & Plan - Diagnosis (1) Septic shock Is this a current diagnosis for this admission?: Yes Plan: Exact etiology of sepsis is unknown at this point. The patient presented with hypotension, respiratory failure, tachycardia, lactic acidosis. Patient is currently on vasopressors. Antibiotics per primary service. (2) Acute kidney injury Is this a current diagnosis for this admission?: Yes Plan: This is due to acute tubular necrosis currently anuric. When I spoke to the emergency room physician earlier I recommended patient be transferred because the patient is probably could benefit from continuous renal replacement therapy which unfortunately hospital does not offer at this time. However the patient was too unstable to be transferred so the patient was admitted here in the ICU instead. At this time the patient only made 25 cc of urine. We will try to do conventional intermittent hemodialysis tomorrow morning depending on her clinical condition. She may or may not even tolerate this conventional hemodialysis. I went ahead and spoke to patient's , Mr. Iyer about this plan. He agreed with the plan and understood that this may or may not work. I also discussed this with Dr. García who is covering MD vahid Perez. I went ahead and called a consult for hours vascular surgery director of distribution, Dr. Lux who was kind enough to agree to try to put a trialysis catheter tonight for possible dialysis siding stapler tomorrow. Nursing care the patient is also inform about this plan. If the patient is an elevated tolerate dialysis tomorrow then we cannot offer anything else in this hospital at that point. When I spoke to the patient's I told him that the patient is in a very critical condition and prognosis is grim. (3) Acute tubular necrosis Is this a current diagnosis for this admission?: Yes (4) Metabolic acidosis Is this a current diagnosis for this admission?: Yes Plan: This is very severe almost incompatible with life. This is due to a combination of septic shock, acute kidney injury and lactic acidosis. This could most likely also be exacerbated by metformin that the patient was taking at home. (5) Shock liver Is this a current diagnosis for this admission?: Yes (6) Hyperkalemia Is this a current diagnosis for this admission?: Yes Plan: Patient was given a cocktail of medications for this including calcium carbonate and currently now on bicarb drip. (7) Acute respiratory failure Qualifiers: Respiratory failure complication: hypoxia and hypercapnia Qualified Code(s) : J96.01 - Acute respiratory failure with hypoxia; J96.02 - Acute respiratory failure with hypercapnia; J96.02 - Acute respiratory failure with hypercapnia; J96.02 - Acute respiratory failure with hypercapnia Is this a current diagnosis for this admission?: Yes - Notes Notes: Thank you very much for this consultation. At this point the patient's condition is critical prognosis is very poor. - Time Time Spent: Greater than 70 Minutes
[2017-10-13] MEDS ORDERED: PIPERACILLIN SODIUM/TAZOBACTAM 3.375 GM in NORMAL SALINE 100 ML IV SCH (21:00)
[2017-10-13] MEDS ORDERED: DEXTROSE 5%-WATER 250 ML with NOREPINEPHRINE BITARTRATE 4 MG IV PRN ×2 (21:00)
[2017-10-13 21:07] LABS: ARTERIAL BLOOD BASE EXCESS -25.8 mmol/L; ARTERIAL BLOOD H2CO3 0.67 mmol/L (1.05-1.35); ARTERIAL BLOOD HCO3 4.8 mmol/L (20-26); ARTERIAL BLOOD PCO2 22.3 mmHg (35-45); ARTERIAL BLOOD PO2 164.5 mmHg (80-100); ARTERIAL BLOOD TOTAL CO2 5.5 mmol/L (21-25)
[2017-10-13 21:08] LABS: ARTERIAL BLOOD FIO2 100%
[2017-10-13 21:09] LABS: ARTERIAL BLOOD PH 6.96 (7.35-7.45)
[2017-10-13] MEDS ORDERED: HYDROCORTISONE SOD SUCCINATE INJ/PF 100 MG/2 ML SDV IV SCH (22:00)
[2017-10-13] MEDS ORDERED: HYDROCORTISONE SOD SUCCINATE INJ/PF 100 MG/2 ML SDV ONE (22:20)
[2017-10-13] MEDS ORDERED: ATROPINE SULFATE INJ 1 MG/10 ML DISP.SYRIN IV ONE (22:26)
--- NOTE | 2017-10-13 22:33 | Operative Report ---
Nonrecallable Operative Report DATE OF SURGERY: 10/13/17 PREOPERATIVE DIAGNOSIS: Acidosis, hypotension, need for dialysis POSTOPERATIVE DIAGNOSIS: Same as above OPERATION: 1. Ultrasound-guided central venous puncture. 2. Right femoral Vas -Cath placement SURGEON: QUINCY SAMUELS ANESTHESIA: Other - None TISSUE REMOVED OR ALTERED: None COMPLICATIONS: Persistent hypotension ESTIMATED BLOOD LOSS: Minimal PROCEDURE: Drains/implants: Right femoral Vas-Cath. Indication for the procedure: This is a 66-year-old female with critical illness and persistent acidosis. The plan is for dialysis to assist with resolving her acidosis. Vas-Cath placement has been requested. Procedure in detail:. After informed consent was obtained from the patient's , the patient was laid in the supine position in the ICU. The area of the right groin was prepped and draped in a normal sterile fashion. The ultrasound was used to identify the right femoral vein. The vein was then accessed using the supplied needle. Dark, venous, nonpulsatile blood was returned in the syringe. The wire was inserted into the vein very easily. The wire was confirmed to be within the lumen of the vein using the ultrasound device. The catheter was then slid over the wire using a modified Seldinger technique. The catheter was aspirated and flushed 3 without difficulty. The catheter was sutured to the skin, and a dressing was placed. The procedure at this time was concluded. All sponge, instrument, and needle counts were correct 2. Condition: Critical.
[2017-10-13 23:36] VITALS: BP 63/51
[2017-10-14] MEDS ORDERED: PIPERACILLIN SODIUM/TAZOBACTAM 2.25 GM in NORMAL SALINE 50 ML IV SCH (02:00)
[2017-10-14] MEDS ORDERED: NORMAL SALINE 1000 ML 1,000 ML IV PRN (05:00)
--- NOTE | 2017-10-14 09:41 | Death Summary ---
Summary Date : 10/13/17 Time of :: 21:23 Resuscitation Status: Full Code - Final Diagnosis (1) Acute renal failure Is this a current diagnosis for this admission?: Yes (2) Metabolic acidosis Is this a current diagnosis for this admission?: Yes (3) Respiratory alkalosis Is this a current diagnosis for this admission?: Yes (4) Shock Is this a current diagnosis for this admission?: Yes (5) Acute respiratory failure Is this a current diagnosis for this admission?: Yes (6) Hypotension Is this a current diagnosis for this admission?: Yes (7) Lactic acidosis Is this a current diagnosis for this admission?: Yes (8) Leukocytosis Is this a current diagnosis for this admission?: Yes (9) Sepsis Is this a current diagnosis for this admission?: Yes Hospital Course:: The patient was admitted with septic and lactic acidosis and shock. She was on multiple pressors. She was intubated. Discussed with the who stated that she would have not wanted to be on prolonged life support. After arriving to the ICU the patient continued to be unresponsive. Her blood pressure was low and additional pressors needed to be added. She has received IV fluid resuscitation. She was seen by the nephrology and an attempt has been made to consider possible dialysis if the patient is stable. She had multiple catheters inserted unfortunately the patient did not respond to resuscitation and have . I have contacted the to see if he would consider doing the autopsy. Message left on the answering machine awaiting response.
[2017-10-14 09:49] LABS: PATH REVIEW PATHOLOGIST REVIEWED
[2017-10-14 09:50] LABS: PATH REVIEW PATHOLOGIST REVIEWED
--- NOTE | 2017-10-14 12:18 | PDOC CONSULTATION ---
Consultation Consult Date: 10/13/17 Attending physician:: DICKSON RUIZ Consult reason:: Hypotension History of Present Illness Admission Date/PCP: 10/13/17 16:43 DICKSON RUIZ, Patient complains of: Currently intubated. Patient in ER very weak with very low blood pressure and low oxygen saturation and unresponsive. History of Present Illness: MASON ANTONY is a 66 year old female who was seen in the emergency room at the request of Dickson Ruiz MD. He had called me yesterday afternoon that patient was in the emergency room with very low blood pressure, severe acidosis and with high heart rate which he reported that patient is in the atrial fibrillation. I was informed that patient may need cardioversion. I went to the emergency room, at that time patient had been sent to the radiology department in the emergency room to have CT scans of her chest and abdomen as well as head. When patient returned, she was noted to be in a sinus tachycardia rhythm. I did talk with Dr. Thomas in the emergency room. It seems he had given patient 150 mg of IV amiodarone bolus. It is quite likely that patient may have converted to sinus rhythm because of that. When I saw the patient she was already intubated and was on vasopressors Levophed and Naman- Synephrine. She had mottled skin and cool periphery and a thready pulse. She was being bagged through a ET tube. Patient had orders to go to the unit. A stat echo was obtained and reviewed. It showed LVEF to be relatively well- preserved. RV and RA was noted to be mildly dilated with probable mild RV systolic dysfunction. Patient was already seen by the surgeon and patient had received 2 units of blood transfusion, several liters of IV fluid. The history I obtained from Dickson Ruiz MD is that patient has a history of diabetes and was on prednisone for some arthritic condition. She just got acutely ill on the morning of presentation. No prior history of heart problems. Twelve-lead EKGs reviewed shows no acute ST-T wave changes but only showed sinus tachycardia. Past Medical History Cardiac Medical History: Reports: Hypertension Endocrine Medical History: Reports: Diabetes Mellitus Type 2 Past Surgical History Past Surgical History: Reports: Hysterectomy Social History Information Source: Relative Smoking Status: Unknown if Ever Smoked - Advance Directive Resuscitation Status: Full Code Surrogate healthcare decision maker:: Patient's at bedside. Family History Family History: Reviewed & Not Pertinent Parental Family History Reviewed: No Children Family History Reviewed: NA Sibling(s) Family History Reviewed.: NA Medication/Allergy Home Medications: Ergocalciferol (Vitamin D2) [Drisdol 50,000 unit (1.25MG) Capsule] 50,000 unit PO REGALADO 10/13/17 Gabapentin [Neurontin 100 mg Capsule] 100 mg PO Q8 10/13/17 Levothyroxine Sodium [Synthroid] 150 mcg PO DAILY 10/13/17 Lisinopril [Zestril] 5 mg PO DAILY 10/13/17 Metformin HCl [Glucophage] 1,000 mg PO BID 10/13/17 Methylprednisolone [Medrol Dosepack (4 mg/Tab) 21 Tab/Dosepak] 1 tab PO ASDIR Allergies/Adverse Reactions: codeine Allergy (Verified 08/26/17 12:06) Review of Systems ROS unobtainable: Due to endotracheal tube Physical Exam Vital Signs: Temp Pulse Resp BP Pulse Ox 98.1 F 22 H 108/50 L 89 L 10/13/17 19:35 10/13/17 17:00 10/13/17 16:17 10/13/17 17:55 Intake & Output 10/12/17 10/13/17 10/14/17 06:59 06:59 06:59 Output Total 200 Balance -200 Exam: GENERAL: well-nourished in constitution. Patient is intubated and sedated. Orientation cannot be checked HEAD: Atraumatic, normocephalic. EYES: Pupils equal round and reactive to light, extraocular movements could not be checked, sclera anicteric, conjunctiva are normal. ENT: TMs normal, nares patent, oropharynx clear without exudates. Moist mucous membranes. No oral ulcerations or bleeding gums noted. ET tube noted NECK: supple without lymphadenopathy or JVD. Trachea is central. No cervical or axillary lymphadenopathy noted. Carotids are 2+ LUNGS: Breath sounds mostly clear to auscultation patient is noted to have bibasal crackles at the extreme bases CHEST: Palpation of the chest wall shows no significant chest wall tenderness or abnormalities. 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 ABDOMEN: Soft, no significant tenderness appreciated, normoactive bowel sounds. No guarding, no rebound. No rigidity noted . No masses appreciated. EXTREMITIES: Pedal pulses are 1-2+, no calf tenderness noted, extremity temperature cool. 1+ pedal edema noted. No clubbing. Peripheral cyanosis noted. NEUROLOGICAL: The patient cannot participate in the neurological exam but no facial asymmetry noted. Extremities slightly hypotonic PSYCH: This cannot be evaluated. Patient cannot participate. SKIN: No significant ecchymosis, rash, or signs of pruritus noted. Skin was noted to be mottled. MUSCULOSKELETAL EXAM: No significant joint swelling noted. Patient cannot participate in musculoskeletal exam. Limbs were noted to be hypotonic. Results Laboratory Results: 10/13/17 18:48 Carbonic Acid 0.92 L HCO3/H2CO3 Ratio 6:1 ABG pH 6.89 L* ABG pCO2 30.4 L ABG pO2 171.0 H ABG HCO3 5.6 L ABG O2 Saturation 97.8 ABG Base Excess -27.0 FiO2 100% 10/13/17 18:40 CK-MB (CK-2) 32.70 H Troponin I 0.039 EKG Comments: Initial EKG shows atrial fibrillation with rapid ventricular response. No acute ST-T wave changes were noted. Impressions: Chest X-Ray 10/13/17 13:26 IMPRESSION: Right-sided central line with its tip at the level of the superior vena cava. No pneumothorax is seen. The previously described ill-defined increased density in the right upper lung field appears less prominent on the current study. Linear density in the left lung base most consistent with subsegmental atelectasis. Other findings as noted above Chest CT 10/13/17 14:03 IMPRESSION: Subsegmental atelectasis. Cannot exclude a limited infiltrate in either base. Small right pleural effusion. Head CT 10/13/17 14:03 IMPRESSION: NORMAL BRAIN CT WITHOUT CONTRAST. EVIDENCE OF ACUTE STROKE: NO. Abdomen/Pelvis CT 10/13/17 14:04 IMPRESSION: 1. Possible pancreatitis. Consider follow-up CT with intravenous contrast. If there is concern for GI bleed, no oral contrast should be given. If not, oral contrast would be helpful. 2. Questionable duodenal edema. See recommendations above. 3. There is small amount of free fluid in the pelvis. KUB X-Ray 10/13/17 17:13 IMPRESSION: SLIGHTLY HIGH POSITION OF NASOGASTRIC TUBE. RECOMMEND ADVANCEMENT. Assessment & Plan - Diagnosis (1) Septic shock Is this a current diagnosis for this admission?: Yes (2) Acute kidney injury Is this a current diagnosis for this admission?: Yes (3) Acute respiratory failure Qualifiers: Respiratory failure complication: hypoxia and hypercapnia Qualified Code(s) : J96.01 - Acute respiratory failure with hypoxia; J96.02 - Acute respiratory failure with hypercapnia; J96.02 - Acute respiratory failure with hypercapnia; J96.02 - Acute respiratory failure with hypercapnia Is this a current diagnosis for this admission?: Yes (4) Lactic acidosis Is this a current diagnosis for this admission?: Yes (5) Metabolic acidosis Is this a current diagnosis for this admission?: Yes (6) Acute tubular necrosis Is this a current diagnosis for this admission?: Yes (7) Shock liver Is this a current diagnosis for this admission?: Yes (8) Atrial fibrillation with RVR Is this a current diagnosis for this admission?: Yes - Notes Notes: Patient presentation was with severe shock, with working diagnosis of septic shock. 2D echo stat was obtained and reviewed. Results reported to attending physician and hospitalist. Patient has multiorgan involvement. Patient has significant elevation of muscle enzyme, liver enzyme. This all report suggests that most likely diagnosis is septic shock. Patient was also noted to be severely acidotic, multiorgan involvement therefore was felt to portend a poor prognosis. This was explained to patient's . At this point, feel that we will just support her vitals and see how things kim out. Continue vasopressors to maintain blood pressure above 90, continue oxygenation and ventilation. Continue to support other vital organs. Overall prognosis is felt to be poor. Management plans were later on discussed with the hospitalist on sign out. Overall critical time spent talking with the ER physician, attending and hospitalist and also taking care of the patient is approximately 35 minutes. - Time Time Spent: 50 to 70 Minutes - Patient was seen and examined in the emergency room. Note was dictated later. Total Critical Time (Minutes): 35 Medications reviewed and adjusted accordingly: Yes
[2017-10-15] MEDS ORDERED: VANCOMYCIN HCL 1,500 MG in DEXTROSE 5%-WATER 250 ML IV SCH (22:00)
== END 2017-10-13 22:26 | disposition left against medical advice (07) | DRG 871 ==
LOC: ER 11:47 → EH 16:43 → ICU 18:31
PROVIDERS: ADMIT Internal Medicine; ATTEND Internal Medicine
PROC: 5A1935Z Respiratory Ventilation, Less than 24 Consecutive Hours (ICD-10-PCS; principal; 2017-10-13)
PROC: 0BH17EZ Insertion of Endotracheal Airway into Trachea, Via Natural or Artificial Opening (ICD-10-PCS; 2017-10-13)
PROC: 30233N1 Transfusion of Nonautologous Red Blood Cells into Peripheral Vein, Percutaneous Approach (ICD-10-PCS; 2017-10-13)
PROC: 02HV33Z Insertion of Infusion Device into Superior Vena Cava, Percutaneous Approach (ICD-10-PCS; 2017-10-13)
PROC: B548ZZA Ultrasonography of Superior Vena Cava, Guidance (ICD-10-PCS; 2017-10-13)
PROC: 03HC33Z Insertion of Infusion Device into Left Radial Artery, Percutaneous Approach (ICD-10-PCS; 2017-10-13)
DX: A41.9 Sepsis, unspecified organism (principal); R65.21 Severe sepsis with septic shock; J96.01 Acute respiratory failure with hypoxia; J96.02 Acute respiratory failure with hypercapnia; N17.0 Acute kidney failure with tubular necrosis; K72.00 Acute and subacute hepatic failure without coma; E87.2 Acidosis; I95.9 Hypotension, unspecified; R00.0 Tachycardia, unspecified; I10 Essential (primary) hypertension; E11.9 Type 2 diabetes mellitus without complications; I48.91 Unspecified atrial fibrillation; E87.5 Hyperkalemia; I95.89 Other hypotension; Z79.899 Other long term (current) drug therapy; Z90.710 Acquired absence of both cervix and uterus; Z88.6 Allergy status to analgesic agent
CPT/HCPCS: 36415; 36430; 36600; 70450; 71045; 71250; 74018; 74176; 80053; 81001; 82271; 82272; 82550; 82553; 82803; 82962; 83605; 83690; 83735; 84484; 85025; 85610; 85730; 86850; 86900; 86901; 86920; 87040; 87077; 87086; 87186; 92950; 93005; 93010; 93306; 94002; 96361; 96365; 96366; 96368; 96375; 96376; 99291; 99292; C1751; J0171; J0282; J0330; J0610; J2250; J2370; J2543; J3370; J3475; J3490; J7030; J7050; J7060; P9016; S0164